=== PATIENT | male | born 1940 | race Caucasian/White ===

== ENCOUNTER 2018-10-06 12:12 | Emergency (ER) | payer MEDICARE, OTHER ==
[~2018-10-06] VITALS: Ht 182.9 cm; Wt 95.3 kg
--- OUTSIDE RECORDS SUMMARY | 2018-10-06 12:26 | XMS REPORT ---
Author RADHA Sarabia Organization [employer] Address Unknown Phone Unavailable Care Team Providers Care Regenerator Operator Name Role Phone RADHA GUIDO CP Unavailable Allergies No Known Allergies Problems Problem Type Condition Code Onset Dates Condition Status Problem Secondary hypertension I15.9 Active Problem Osteoarthritis, unspecified osteoarthritis type, unspecified site M19.90 Active Problem Chronic fatigue R53.82 Active Problem Depression, unspecified depression type F32.9 Active Medications Medication Code System Code Instructions Start Date End Date Status Dosage Naprosyn [facility] [address]-59 500 MG Orally every 12 hrs Jun 06, 2016Aug 1 tablet as needed Results No Known Results Summary Purpose eClinicalWorks Submission
--- OUTSIDE RECORDS SUMMARY | 2018-10-06 12:26 | XMS REPORT ---
Author Author RADHA GUIDO Organization [facility] Address [address] [place] [address] Care Team Providers Care Aoc Operations Intelligence Chief Name Role Phone KRISSY GUIDONETTE Unavailable PROBLEMS Type Condition ICD9-CM Code JNR11-AF Code Onset Dates Condition Status SNOMED Code Problem Lumbar and sacral arthritis M48.9 Active 20113191 Problem Secondary hypertension I15.9 Active 31879628 Problem Pure hypercholesterolemia E78.00 Active 170510524 Problem Environmental allergies Z91.09 Active 338763969 Problem Other chronic pain G89.29 Active 67096125 Problem Osteoarthritis, unspecified osteoarthritis type, unspecified site M19.90 Active 976295969 Problem Depression, unspecified depression type F32.9 Active 58847614 Problem Gastroesophageal reflux disease, esophagitis presence not specified K21.9 Active 862670502 Problem Chronic fatigue R53.82 Active 45210846 ALLERGIES No Known Allergies SOCIAL HISTORY Never Assessed PLAN OF CARE Activity Details Follow Up 2 Weeks Reason: VITAL SIGNS Height 70 in 2017-01-08 Weight 203.5 lbs 2017-01-08 Temperature 98.1 degrees Fahrenheit 2017-01-08 Heart Rate 80 bpm 2017-01-08 Respiratory Rate 18 2017-01-08 BMI 29.20 kg/m2 2017-01-08 Blood pressure systolic 126 mmHg 2017-01-08 Blood pressure diastolic 70 mmHg 2017-01-08 MEDICATIONS Medication Instructions Dosage Frequency Start Date End Date Duration Status Valsartan 160 MG Orally Once a day 1 24h Active Multivital - Active Flaxseed Oil - Active Fexofenadine HCl 180 MG Orally Once a day 1 tablet as needed 24h December, Mar, 30 day(s) Active Celexa 20 mg Orally Once a day 1 tablet 24h 30 Jan, 2016 30 day(s) Active Aspir-81 81 MG Orally Once a day 1 tablet 24h Active Simvastatin 40 MG Orally Once a day 1 tablet in the evening 24h Active Ranitidine 1 tab Active RESULTS No Results PROCEDURES Procedure Date Ordered Result Body Site DEPO MEDROL 40 MG/ML January 08, 2017 DEXAMETHASONE 4MG/ML (PER 1 MG) January 08, 2017 THER/PROPH/DIAG INJ, SC/IM January 08, 2017 IMMUNIZATIONS Vaccine Route Administration Date Status DEXAMETHASONE 4MG/ML (PER 1 MG) IM Intramuscular January 08, 2017 Administered DEPO MEDROL 40 MG/ML IM Intramuscular January 08, 2017 Administered MEDICAL (GENERAL) HISTORY Type Description Date Medical History Mixed hyperlipidemia Medical History Essential (primary) hypertension Surgical History CABGx3 Surgical History appendectomy Hospitalization History surgeries
--- OUTSIDE RECORDS SUMMARY | 2018-10-06 12:26 | XMS REPORT ---
Author Author RICHARD CHARLES [facility] Address [address] [place] [address] Care Team Providers Care Grid Caster Name Role Phone RICHARD CHARLES Unavailable PROBLEMS Type Condition ICD9-CM Code SUI59-NS Code Onset Dates Condition Status SNOMED Code Problem Lumbar and sacral arthritis M48.9 Active 01084803 Problem Secondary hypertension I15.9 Active 73757242 Problem Pure hypercholesterolemia E78.00 Active 610343045 Problem Environmental allergies Z91.09 Active 179711867 Problem Other chronic pain G89.29 Active 97222453 Problem Osteoarthritis, unspecified osteoarthritis type, unspecified site M19.90 Active 273403532 Problem Depression, unspecified depression type F32.9 Active 72239550 Problem Gastroesophageal reflux disease, esophagitis presence not specified K21.9 Active 791956970 Problem Chronic fatigue R53.82 Active 92284294 ALLERGIES No Information ENCOUNTERS Encounter Location Date Diagnosis [facility] [id number] [place] [address] 4336 Jul, [facility] [id number] [place] [address] 20776- 4391 May, [facility] [id number] [place] [address] 02636- 7305 Apr, Environmental allergies Z91.09 [facility] [id number] [place] [address]11- 9782 Jan, Secondary hypertension I15.9 ; Osteoarthritis, unspecified osteoarthritis type, unspecified site M19.90 ; Chronic fatigue R53.82 ; Hypercholesterolemia E78.0 and Environmental allergies Z91.09 [facility] [id number] [place] [address] 00818- 7252 December, Secondary hypertension I15.9 and Environmental allergies Z91.09 [facility] [id number] [address] Sep, [facility] [id number] [place] [address] 47661- 5560 Sep, Low back pain M54.5 ; Other chronic pain G89.29 ; Osteoarthritis, unspecified osteoarthritis type, unspecified site M19.90 ; Gastroesophageal reflux disease, esophagitis presence not specified K21.9 ; Secondary hypertension I15.9 and Hypercholesterolemia E78.0 [facility] [id number] [place] [address] 81048- 3268 Aug, Acute upper respiratory infection, unspecified J06.9 ; Other viral agents as the cause of diseases classified elsewhere B97.89 and Nausea R11.0 [facility] [address], [place] [address] Jun, Osteoarthritis, unspecified osteoarthritis type, unspecified site M19.90 [facility] [id number] [place] [address]28- 2006 May, [facility] [id number] [place] [address] 73632- 9[address] May, Arthralgia, unspecified joint M25.50 ; Urinary frequency R35.0 and Chronic fatigue R53.82 [facility] [id number] [place] [address] 38442- 4169 Apr, [facility] [id number] [place] [address] 74650- 1451 Mar, [facility] [id number] [place] [address] 27101- 0398 Mar, [facility] [id number] [place] [address] 14822- 2605 Jan, Secondary hypertension I15.9 ; Osteoarthritis, unspecified osteoarthritis type, unspecified site M19.90 ; Depression, unspecified depression type F32.9 ; Gastroesophageal reflux disease, esophagitis presence not specified K21.9 and Hypercholesterolemia E78.0 IMMUNIZATIONS No Known Immunizations SOCIAL HISTORY Never Assessed REASON FOR VISIT Refill request PLAN OF CARE VITAL SIGNS MEDICATIONS Medication Instructions Dosage Frequency Start Date End Date Duration Status Celexa 20 mg Orally Once a day 1 tablet 24h Jan, 30 day(s) Active RESULTS No Results PROCEDURES No Known procedures INSTRUCTIONS MEDICATIONS ADMINISTERED No Known Medications MEDICAL (GENERAL) HISTORY Type Description Date Medical History Mixed hyperlipidemia Medical History Essential (primary) hypertension Surgical History CABGx3 Surgical History appendectomy Hospitalization History surgeries
--- OUTSIDE RECORDS SUMMARY | 2018-10-06 12:26 | XMS REPORT ---
Author Author HAY RADHA Organization [facility] Address [address] [place] [address] Care Team Providers Care Associate Vice President Name Role Phone RADHA GUIDO Unavailable PROBLEMS Type Condition ICD9-CM Code KRN11-IS Code Onset Dates Condition Status SNOMED Code Problem Lumbar and sacral arthritis M48.9 Active 67083187 Problem Secondary hypertension I15.9 Active 57270178 Problem Pure hypercholesterolemia E78.00 Active 593854109 Problem Environmental allergies Z91.09 Active 720919883 Problem Other chronic pain G89.29 Active 49436419 Problem Osteoarthritis, unspecified osteoarthritis type, unspecified site M19.90 Active 248570999 Problem Depression, unspecified depression type F32.9 Active 39531883 Problem Gastroesophageal reflux disease, esophagitis presence not specified K21.9 Active 525982167 Problem Chronic fatigue R53.82 Active 46128457 ALLERGIES No Known Allergies SOCIAL HISTORY Never Assessed PLAN OF CARE Activity Details Follow Up 3 Months, prn Reason: VITAL SIGNS Height 70 in 2016-09-24 Weight 208.9 lbs 2016-09-24 Temperature 97.6 degrees Fahrenheit 2016-09-24 Heart Rate 72 bpm 2016-09-24 Respiratory Rate 18 2016-09-24 BMI 29.97 kg/m2 2016-09-24 Blood pressure systolic 128 mmHg 2016-09-24 Blood pressure diastolic 74 mmHg 2016-09-24 MEDICATIONS Medication Instructions Dosage Frequency Start Date End Date Duration Status Aspir-81 81 MG Orally Once a day 1 tablet 24h Active Diclofenac Potassium 50 mg Orally Twice a day 1 tablet 12h Jun, Sep, Active Flaxseed Oil - Active Simvastatin 40 MG Orally Once a day 1 tablet in the evening 24h Active Celexa 20 mg Orally Once a day 1 tablet 24h 30 Jan, 2016 30 day(s) Active Valsartan 160 MG Orally Once a day 1 24h Active Ranitidine 1 tab Active Multivital - Active RESULTS Name Result Date Reference Range Xray : Spine, Lumbar 2-3 views (IN HOUSE) 2016-09-24 PROCEDURES Procedure Date Ordered Result Body Site X-RAY EXAM OF LOWER SPINE Sep 24, 2016 THER/PROPH/DIAG INJ, SC/IM Sep 24, 2016 DEPO MEDROL 40 MG/ML Sep 24, 2016 DEXAMETHASONE 4MG/ML (PER 1 MG) Sep 24, 2016 IMMUNIZATIONS Vaccine Route Administration Date Status DEXAMETHASONE 4MG/ML (PER 1 MG) IM Intramuscular Sep 24, 2016 Administered DEPO MEDROL 40 MG/ML IM Intramuscular Sep 24, 2016 Administered MEDICAL (GENERAL) HISTORY Type Description Date Medical History Mixed hyperlipidemia Medical History Essential (primary) hypertension Surgical History CABGx3 Surgical History appendectomy Hospitalization History surgeries
--- OUTSIDE RECORDS SUMMARY | 2018-10-06 12:26 | XMS REPORT ---
Author Author HAY RADHA Organization [facility] Address [address] [place] [address] Care Team Providers Care Materials Associate Name Role Phone RADHA GUIDO Unavailable PROBLEMS Type Condition ICD9-CM Code QOV18-TS Code Onset Dates Condition Status SNOMED Code Problem Lumbar and sacral arthritis M48.9 Active 41394531 Problem Secondary hypertension I15.9 Active 77425126 Problem Pure hypercholesterolemia E78.00 Active 372027272 Problem Environmental allergies Z91.09 Active 670033348 Problem Other chronic pain G89.29 Active 76199494 Problem Osteoarthritis, unspecified osteoarthritis type, unspecified site M19.90 Active 199720587 Problem Depression, unspecified depression type F32.9 Active 44552697 Problem Gastroesophageal reflux disease, esophagitis presence not specified K21.9 Active 556304553 Problem Chronic fatigue R53.82 Active 08922032 ALLERGIES Substance Reaction Event Type Date Status N.K.D.A. Unknown Non Drug Allergy Aug, Unknown SOCIAL HISTORY No smoking Hx information available PLAN OF CARE Activity Details Follow Up 1 Week, prn Reason: VITAL SIGNS Height 70 in 2016-08-22 Weight 210.8 lbs 2016-08-22 Temperature 98.1 degrees Fahrenheit 2016-08-22 Heart Rate 88 bpm 2016-08-22 Respiratory Rate 16 2016-08-22 BMI 30.24 kg/m2 2016-08-22 Blood pressure systolic 110 mmHg 2016-08-22 Blood pressure diastolic 70 mmHg 2016-08-22 MEDICATIONS Medication Instructions Dosage Frequency Start Date End Date Duration Status Tramadol HCl 50 mg Orally every 6 hrs 1 tablet as needed 6h Jun, Active Diclofenac Potassium 50 mg Orally Twice a day 1 tablet 12h Jun, Sep, 90 days Active Naprosyn 500 MG Orally every 12 hrs 1 tablet as needed 12h May, Aug, 90 days Active Ranitidine 1 tab Active Schyiv-Gpmeiundi-ZHR Complex - Active Valsartan 160 MG Orally Once a day 1 24h Active Celexa 20 mg Orally Once a day 1 tablet 24h 30 Jan, 2016 30 day(s) Active Aspir-81 81 MG Orally Once a day 1 tablet 24h Active Flaxseed Oil - Active Simvastatin 40 MG Orally Once a day 1 tablet in the evening 24h Active Promethazine-DM 6.25-15 MG/5ML Orally every 6 hrs 5 ml as needed 6h Aug Active Multivital - Active RESULTS No Results PROCEDURES Procedure Date Ordered Related Diagnosis Body Site Office Visit, Est Pt., Level 3 Aug 22, 2016 DEXAMETHASONE 4MG/ML (PER 1 MG) Aug 22, 2016 THER/PROPH/DIAG INJ, SC/IM Aug 22, 2016 IMMUNIZATIONS Vaccine Route Administration Date Status DEXAMETHASONE 4MG/ML (PER 1 MG) IM Intramuscular Aug 22, 2016 Administered
--- OUTSIDE RECORDS SUMMARY | 2018-10-06 12:26 | XMS REPORT ---
Author Author RICHARD CHARLES [facility] Address [address] [place] [address] Care Team Providers Care Letterpress Printing Machinist Name Role Phone RICHARD CHARLES Unavailable PROBLEMS Type Condition ICD9-CM Code MEJ21-NG Code Onset Dates Condition Status SNOMED Code Problem Lumbar and sacral arthritis M48.9 Active 41669632 Problem Secondary hypertension I15.9 Active 43036783 Problem Pure hypercholesterolemia E78.00 Active 341253325 Problem Environmental allergies Z91.09 Active 040674149 Problem Other chronic pain G89.29 Active 48831924 Problem Osteoarthritis, unspecified osteoarthritis type, unspecified site M19.90 Active 006316209 Problem Depression, unspecified depression type F32.9 Active 20093693 Problem Gastroesophageal reflux disease, esophagitis presence not specified K21.9 Active 287905247 Problem Chronic fatigue R53.82 Active 45238295 ALLERGIES No Information ENCOUNTERS Encounter Location Date Diagnosis [facility] [id number] [place] [address] 31387- 0679 Jul, [facility] [id number] [place] [address] 63597- 1156 May, [facility] [id number] [place] [address] 32236- 0100 Apr, Environmental allergies Z91.09 [facility] [id number] [place] [address] 38912- 9984 Jan, Secondary hypertension I15.9 ; Osteoarthritis, unspecified osteoarthritis type, unspecified site M19.90 ; Chronic fatigue R53.82 ; Hypercholesterolemia E78.0 and Environmental allergies Z91.09 [facility] [id number] [place] [address] 17375- 7192 December, Secondary hypertension I15.9 and Environmental allergies Z91.09 [facility] [id number] [address] Sep, [facility] [id number] [place] [address] 88329- 6935 Sep, Low back pain M54.5 ; Other chronic pain G89.29 ; Osteoarthritis, unspecified osteoarthritis type, unspecified site M19.90 ; Gastroesophageal reflux disease, esophagitis presence not specified K21.9 ; Secondary hypertension I15.[address] [facility] [id number] [place] [address] 41160- 0363 Aug, Acute upper respiratory infection, unspecified J06.9 ; Other viral agents as the cause of diseases classified elsewhere B97.89 and Nausea R11.0 [facility] [address], [place] [address] Jun, Osteoarthritis, unspecified osteoarthritis type, unspecified site M19.90 [place] [id number] [place] [address] 72962- 5800 May, [facility] [id number] [place] [address] 21507- 1914 May, Arthralgia, unspecified joint M25.50 ; Urinary frequency R35.0 and Chronic fatigue R53.82 [facility] [id number] [place] [address] 80738- 5339 Apr, [place] [id number] [place] [address] 58470- 5421 Mar, [facility] [place] [id number] [place] [address] 72826- 2502 Mar, [facility] [place] [id number] [place] [address] 42728- 3553 Jan, Secondary hypertension I15.9 ; Osteoarthritis, unspecified osteoarthritis type, unspecified site M19.90 ; Depression, unspecified depression type F32.9 ; Gastroesophageal reflux disease, esophagitis presence not specified K21.9 and Hypercholesterolemia E78.0 IMMUNIZATIONS No Known Immunizations SOCIAL HISTORY Never Assessed REASON FOR VISIT Medication refill request PLAN OF CARE VITAL SIGNS MEDICATIONS Unknown Medications RESULTS No Results PROCEDURES No Known procedures INSTRUCTIONS MEDICATIONS ADMINISTERED No Known Medications MEDICAL (GENERAL) HISTORY Type Description Date Medical History Mixed hyperlipidemia Medical History Essential (primary) hypertension Surgical History CABGx3 Surgical History appendectomy Hospitalization History surgeries
--- OUTSIDE RECORDS SUMMARY | 2018-10-06 12:27 | XMS REPORT ---
Author RADHA Sarabia [facility] [employer] Address Unknown Phone Unavailable Care Team Providers Care Intermediate Designer Name Role Phone RADHA GUIDO CP Unavailable Allergies, Adverse Reactions, Alerts Substance Reaction Event Type N.K.D.A. Info Not Available Non Drug Allergy Problems Problem Type Condition Code Onset Dates Condition Status Problem Secondary hypertension I15.9 Active Problem Osteoarthritis, unspecified osteoarthritis type, unspecified site M19.90 Active Problem Chronic fatigue R53.82 Active Assessment Urinary frequency R35.0 Active Assessment Chronic fatigue R53.82 Active Problem Depression, unspecified depression type F32.9 Active Assessment Arthralgia, unspecified joint M25.50 Active Medications Medication Code System Code Instructions Start Date End Date Status Dosage Multivital [facility] [address]3378 - Orally not defined Celexa [facility] [address]-38 20 mg Orally Once a day February 09, 2016 1 tablet Ranitidine [facility] 0 Oral 1 tab Flaxseed Oil [facility] 85806-63136 - not defined Ltsfgl-Bmwghmucm-IZF Complex [facility] 48767-90803 - Orally not defined Meloxicam [facility] 04698059044 15 MG Orally Once a day 1 tablet Simvastatin [facility] [address]-64 40 MG Orally Once a day 1 tablet in the evening Valsartan [facility] [address]-58 160 MG Orally Once a day 1 Aspir-81 [facility] [address]-60 81 MG Orally Once a day 1 tablet Procedures Procedure Coding System Code Date DEXAMETHASONE 20MG/5 ML (PER 1 MG) CPT-4 J1100 Jun 05, 2016 URINALYSIS, AUTO, W/O SCOPE CPT-4 71808 Jun 05, 2016 COMPLETE CBC W/AUTO DIFF WBC CPT-4 36572 Jun 05, 2016 RBC SED RATE, NONAUTOMATED CPT-4 59809 Jun 05, 2016 DEPO MEDROL 40 MG/ML CPT-4 J1030 Jun 05, 2016 VENIPUNCT, ROUTINE* CPT-4 58061 Jun 05, 2016 THER/PROPH/DIAG INJ, SC/IM CPT-4 55205 Jun 05, 2016 COMPREHEN METABOLIC PANEL CPT-4 96545 Jun 05, 2016 ASSAY OF BLOOD/URIC ACID CPT-4 16216 Jun 05, 2016 Office Visit, Est Pt., Level 4 CPT-4 98375 Jun 05, 2016 ASSAY OF PSA, TOTAL CPT-4 54386 Jun 05, 2016 Vital Signs Date/Time: Jun 05, 2016 Cardiac Monitoring Heart Rate 64 bpm Weight 204.6 lbs Height 70 in BMI 29.35 Index Blood Pressure Diastolic 70 mmHg Blood Pressure Systolic 138 mmHg Results Name Result Date Reference Range Unit Abnormality Flag PSA ----Prostate Specific Ag, Serum 2.5 64505432 0.0-4.0 ng/mL CMP ----Globulin, Total 2.1 25040869 1.5-4.5 g/dL ----eGFR If Africn Am 71 52398395 >59 mL/min/1.73 ----eGFR If NonAfricn Am 62 26624732 >59 mL/min/1.73 ----Albumin, Serum 4.6 27632053 3.5-4.8 g/dL ----Sodium, Serum 146 11638274 136-144 mmol/L H ----Protein, Total, Serum 6.7 86019159 6.0-8.5 g/dL ----BUN/Creatinine Ratio 15 06353056 10-22 ----Calcium, Serum 9.3 84964003 8.6-10.2 mg/dL ----AST (SGOT) 25 05238556 0-40 IU/L ----Glucose, Serum 100 18079898 65-99 mg/dL H ----Alkaline Phosphatase, S 57 29832267 39-117 IU/L ----Bilirubin, Total 0.7 85144299 0.0-1.2 mg/dL ----Creatinine, Serum 1.16 43167650 0.76-1.27 mg/dL ----A/G Ratio 2.2 05166696 1.1-2.5 ----BUN 17 01423577 8-27 mg/dL ----Carbon Dioxide, Total 23 55448260 18-29 mmol/L ----ALT (SGPT) 20 49550643 0-44 IU/L ----Potassium, Serum 4.4 46533753 3.5-5.2 mmol/L ----Chloride, Serum 103 45672771 97-106 mmol/L URIC ACID, SERUM ----Uric Acid, Serum 7.1 70220541 3.7-8.6 mg/dL CBC ----MCHC 33.4 42171019 31.5-35.7 g/dL ----MCH 30.4 55978236 26.6-33.0 pg ----Platelets 203 03101129 150-379 x10E3/uL ----RDW 13.4 81684769 12.3-15.4 % ----Immature Granulocytes 0 00256363 % ----Immature Grans (Abs) 0.0 79374726 0.0-0.1 x10E3/uL ----Lymphs 39 30182650 % ----Monocytes 13 02708723 % ----Neutrophils 46 32565008 % ----Neutrophils (Absolute) 4.1 47462916 1.4-7.0 x10E3/uL ----Hematocrit 39.8 38324470 37.5-51.0 % ----Lymphs (Absolute) 3.5 51570076 0.7-3.1 x10E3/uL H ----MCV 91 19644030 79-97 fL ----RBC 4.37 66134208 4.14-5.80 x10E6/uL ----Eos 2 85275861 % ----Basos 0 99429494 % ----Hemoglobin 13.3 70443760 12.6-17.7 g/dL ----Baso (Absolute) 0.0 20066002 0.0-0.2 x10E3/uL ----WBC 9.0 11168413 3.4-10.8 x10E3/uL ----Monocytes(Absolute) 1.2 54762470 0.1-0.9 x10E3/uL H ----Eos (Absolute) 0.2 38825477 0.0-0.4 x10E3/uL ROUTINE VENIPUNCTURE ESR/SED RATE (IN HOUSE) ----Exp Date 10/09/16201605135 0 - 20 ----Lot # [id number] ----SED/ESR RATE 45 mm/hr [id number] UA LONG DIP (IN HOUSE) ----Clarity clear 20160605 ----Exp date [id number] ----GLU negative 20160605 ----Color yellow 20160605 ----KET trace 20160605 ----JENISE 1+ 20160605 ----BLO negative 20160605 ----SG >1.030 20160605 ----pH 5.5 20160605 ----URO 1.0 20160605 ----Protein trace 20160605 ----CESIA negative 20160605 ----NIT negative 20160605 ----Lot # [id number] Summary Purpose eClinicalWorks Submission
--- OUTSIDE RECORDS SUMMARY | 2018-10-06 12:27 | XMS REPORT ---
Author Author RADHA Leblanc Organization [facility] Address [address] [place] [address] Care Team Providers Care Sexual Assault Counsellor Name Role Phone Deana RADHA Unavailable PROBLEMS Type Condition ICD9-CM Code [id number] Code Onset Dates Condition Status SNOMED Code Problem Lumbar and sacral arthritis M48.9 Active 28091501 Problem Secondary hypertension I15.9 Active 99626701 Problem Pure hypercholesterolemia E78.00 Active 462289013 Problem Environmental allergies Z91.09 Active 843890045 Problem Other chronic pain G89.29 Active 19271794 Problem Osteoarthritis, unspecified osteoarthritis type, unspecified site M19.90 Active 762650479 Problem Depression, unspecified depression type F32.9 Active 39863302 Problem Gastroesophageal reflux disease, esophagitis presence not specified K21.9 Active 654984857 Problem Chronic fatigue R53.82 Active 42044433 ALLERGIES No Information ENCOUNTERS Encounter Location Date Diagnosis [facility] [id number] [place] [phone] Jul, [facility] [id number] [place] [address] [phone] May, [facility] [id number] [place] [address] [phone] Apr, Environmental allergies Z91.09 [facility] [id number] [place] [address] [phone] Jan, Secondary hypertension I15.9 ; Osteoarthritis, unspecified osteoarthritis type, unspecified site M19.90 ; Chronic fatigue R53.82 ; Hypercholesterolemia E78.0 [address] Environmental allergies Z91.09 [facility] [id number] [place] [address] [phone]- 2459 December, Secondary hypertension I15.9 [address] Environmental allergies Z91.09 [facility] [id number] [place] [address] [phone] Sep, [place] [id number] [place] [address] [phone]- [phone] Sep, Low back pain M54.5 ; Other chronic pain G89.29 ; Osteoarthritis, unspecified osteoarthritis type, unspecified site M19.90 ; Gastroesophageal reflux disease, esophagitis presence not specified K21.9 ; Secondary hypertension I15.9 and Hypercholesterolemia E78.0 [place] [id number] [place] [address] [phone] Aug, Acute upper respiratory infection, unspecified J06.9 ; Other viral agents as the cause of diseases classified elsewhere B97.89 and Nausea R11.0 [facility] [id number] [place] [address] [phone] -[phone] Jun, Osteoarthritis, unspecified osteoarthritis type, unspecified site M19.90 [place] [id number] [place] [address] [phone]- [phone] May, [place] [id number] [place] [address] [phone]- 1558 May, Arthralgia, unspecified joint M25.50 ; Urinary frequency R35.0 and Chronic fatigue R53.82 [place] [id number] [place] [address] [phone]- [phone] Apr, [place] [id number] [place] [address] 31443- [phone] Mar, [place] [id number] [place] [address] 19483- 9992 Mar, [place] [id number] [place] [address] [phone] Jan, Secondary hypertension I15.9 ; Osteoarthritis, unspecified osteoarthritis type, unspecified site M19.90 ; Depression, unspecified depression type F32.9 ; Gastroesophageal reflux disease, esophagitis presence not specified K21.9 and Hypercholesterolemia E78.0 IMMUNIZATIONS No Known Immunizations SOCIAL HISTORY Never Assessed REASON FOR VISIT Refill request PLAN OF CARE VITAL SIGNS MEDICATIONS Medication Instructions Dosage Frequency Start Date End Date Duration Status Fexofenadine HCl 180 MG Orally Once a day 1 tablet as needed 24h December, Active RESULTS No Results PROCEDURES No Known procedures INSTRUCTIONS MEDICATIONS ADMINISTERED No Known Medications MEDICAL (GENERAL) HISTORY Type Description Date Medical History Mixed hyperlipidemia Medical History Essential (primary) hypertension Surgical History CABGx3 Surgical History appendectomy Hospitalization History surgeries
--- OUTSIDE RECORDS SUMMARY | 2018-10-06 12:27 | XMS REPORT ---
Author Author HAY RADHA Organization [facility] Address [address] [place] [address] Care Team Providers Care Residence Life Coordinator Name Role Phone RADHA GUIDO Unavailable PROBLEMS Type Condition ICD9-CM Code [id number] Code Onset Dates Condition Status SNOMED Code Problem Pure hypercholesterolemia E78.00 Active 390668942 Problem Depression, unspecified depression type F32.9 Active 71399081 Problem Lumbar and sacral arthritis M48.9 Active 45231895 Problem Environmental allergies Z91.09 Active 815963908 Problem Other chronic pain G89.29 Active 09490116 Problem Secondary hypertension I15.9 Active 57654662 Problem Osteoarthritis, unspecified osteoarthritis type, unspecified site M19.90 Active 564398897 Problem Gastroesophageal reflux disease, esophagitis presence not specified K21.9 Active 999364601 Problem Chronic fatigue R53.82 Active 04781246 ALLERGIES Substance Reaction Event Type Date Status N.K.D.A. Unknown Non Drug Allergy Jun, Unknown SOCIAL HISTORY No smoking Hx information available PLAN OF CARE Activity Details Follow Up 6 Weeks Reason:oa VITAL SIGNS Height 70 in 2016-07-10 Weight 209 lbs 2016-07-10 Temperature 97.6 degrees Fahrenheit 2016-07-10 Heart Rate 58 bpm 2016-07-10 Respiratory Rate 18 2016-07-10 BMI 29.99 kg/m2 2016-07-10 Blood pressure systolic 134 mmHg 2016-07-10 Blood pressure diastolic 70 mmHg 2016-07-10 MEDICATIONS Medication Instructions Dosage Frequency Start Date End Date Duration Status Flaxseed Oil - Active Multivital - Active Aspir-81 81 MG Orally Once a day 1 tablet 24h Active Ranitidine 1 tab Active Penlgv-Xnnifiudh-VWD Complex - Active Diclofenac Potassium 50 mg Orally Twice a day 1 tablet 12h 29 Jun, 2016 Sep, 90 days Active Naprosyn 500 MG Orally every 12 hrs 1 tablet as needed 12h May, Aug, 90 days Active Celexa 20 mg Orally Once a day 1 tablet 24h Jan, 30 day(s) Active Tramadol HCl 50 mg Orally every 6 hrs 1 tablet as needed 6h Jun, Active Valsartan 160 MG Orally Once a day 1 24h Active Simvastatin 40 MG Orally Once a day 1 tablet in the evening 24h Active RESULTS No Results PROCEDURES Procedure Date Ordered Related Diagnosis Body Site Office Visit, Est Pt., Level 3 Jul 10, 2016 IMMUNIZATIONS No Known Immunizations
--- OUTSIDE RECORDS SUMMARY | 2018-10-06 12:27 | XMS REPORT ---
Author RADHA Sarabia [facility] eClinicalWorks Address Unknown Phone Unavailable Care Team Providers Care Talent Agent Name Role Phone RADHA GUIDO CP Unavailable Allergies No Known Allergies Problems Problem Type Condition Code Onset Dates Condition Status Problem Osteoarthritis, unspecified osteoarthritis type, unspecified site M19.90 Active Problem Depression, unspecified depression type F32.9 Active Problem Secondary hypertension I15.9 Active Medications Medication Code System Code Instructions Start Date End Date Status Dosage Celexa [facility] [id number] 20 mg Orally Once a day February 09, 2016 1 tablet Results No Known Results Summary Purpose eClinicalWorks Submission
[2018-10-06 12:55] LABS: BASOPHILS % (AUTO) 1 % (0-10); EOSINOPHILS % (AUTO) 1 % (0-10); HEMATOCRIT 40 % (40-54); HEMOGLOBIN 13.3 G/DL (13.3-17.7); LYMPHOCYTES % (AUTO) 38 % (12-44); MEAN CORPUSCULAR HEMOGLOBIN 31 PG (25-34); MEAN CORPUSCULAR HGB CONC 33 G/DL (32-36); MEAN CORPUSCULAR VOLUME 95 FL (80-99); MEAN PLATELET VOLUME 9.3 FL (7.4-10.4); MONOCYTES % (AUTO) 11 % (0-12); NEUTROPHILS % (AUTO) 49 % (42-75); PLATELET COUNT 260 10^3/uL (130-400); RED CELL DISTRIBUTION WIDTH 13.4 % (10.0-14.5); WHITE BLOOD COUNT 10.5 10^3/uL (4.3-11.0)
[2018-10-06 12:56] LABS: BASOPHILS # (AUTO) 0.1 10^3/uL (0.0-0.1); EOSINOPHILS # (AUTO) 0.1 10^3/uL (0.0-0.3); LYMPHOCYTES # (AUTO) 3.9 X 10^3 (1.0-4.0); MONOCYTES # (AUTO) 1.2 X 10^3 (0.0-1.0); NEUTROPHILS # (AUTO) 5.2 X 10^3 (1.8-7.8)
[2018-10-06 13:04] LABS: SODIUM 141 MMOL/L (135-145)
[2018-10-06 13:05] LABS: ALANINE AMINOTRANSFERASE 32 U/L (0-55); ALBUMIN 4.6 GM/DL (3.2-4.5); ALKALINE PHOSPHATASE 43 U/L (40-136); BILIRUBIN,TOTAL 0.6 MG/DL (0.1-1.0); BUN/CREATININE RATIO 22; CALCIUM 9.7 MG/DL (8.5-10.1); CARBON DIOXIDE 25 MMOL/L (21-32); CHLORIDE 100 MMOL/L (98-107); CREATININE SERUM 1.01 MG/DL (0.60-1.30); GFR ESTIMATED > 60; GLUCOSE 101 MG/DL (70-105); TOTAL PROTEIN 7.1 GM/DL (6.4-8.2)
--- NOTE | 2018-10-06 13:26 | Diagnostic Imaging Report ---
PROCEDURE: CT head wo r/o stroke. TECHNIQUE: Multiple contiguous axial images were obtained through the brain without the use of intravenous contrast. INDICATION: Headache for three days and right leg pain for 10 months. COMPARISON: None available. FINDINGS: No hyperdense hemorrhage or space-occupying mass. No hydrocephalus or midline shift. Lind-white matter differentiation is preserved. Specifically, there are no features of large territorial infarct. No acute skull fracture. Paranasal sinuses and mastoid air cells are clear. IMPRESSION: 1. No acute intracranial process by CT. Dictated by: Dictated on workstation # [id number]
--- NOTE | 2018-10-06 13:41 | Diagnostic Imaging Report ---
INDICATION: Headache. FINDINGS: There is cardiomegaly. There has been previous median sternotomy and coronary artery bypass graft. There is some left basilar atelectasis and/or pneumonitis. There is a left pleural effusion. There is no pneumothorax. The mediastinum is unremarkable. IMPRESSION: Left basilar atelectasis and/or pneumonitis and a small left pleural effusion. Cardiomegaly. Dictated by: Dictated on workstation # [id number]
[2018-10-06 14:07] LABS: CLARITY,URINE CLEAR; COLOR,URINE YELLOW
[2018-10-06 14:08] LABS: BILIRUBIN,URINE NEGATIVE (NEGATIVE); GLUCOSE, URINE (UA) NEGATIVE (NEGATIVE); KETONES,URINE NEGATIVE (NEGATIVE); LEUKOCYTE ESTERASE ,URINE NEGATIVE (NEGATIVE); NITRITE,URINE NEGATIVE (NEGATIVE); PROTEIN,URINE NEGATIVE (NEGATIVE); SQUAMOUS EPITHELIAL CELL,UR RARE /HPF; UROBILINOGEN,URINE 0.2 MG/DL (NORMAL)
[2018-10-06] MEDS ORDERED: LEVOFLOXACIN 500 MG TAB (LEVAQUIN) ONE (14:22)
[2018-10-06] MEDS: LEVOFLOXACIN 750 MG TAB (LEVAQUIN) PO ONE ×2 (14:30→14:39)
[2018-10-06] MEDS ORDERED: LEVOFLOXACIN 500 MG TAB (LEVAQUIN) PO ONE (14:45)
[2018-10-06] MEDS ORDERED: LEVO750T9 PO (14:45)
[2018-10-06 14:52] VITALS: BP 135/62
[2018-10-06 14:54] LABS: AMMONIA 56 UMOL/L (11-32)
--- NOTE | 2018-10-06 15:25 | ED Headache ---
General Chief Complaint: Head/Cervical Problems Stated Complaint: DIZZINESS; HEADACHE Nursing Triage Note: Pt was sent over by [facility] physician Dr. Orr for headache and dizziness since saturday. Pt stated today it got worse. The pain is localized on the top of his head. Causing blurred vision, shaking of both arms and SOB on the way here he stated. He stated he has been to bathroom 3-4 times in past hour and not sure if it is from nerves. Nursing Sepsis Screen: No Definite Risk Source: patient, family History of Present Illness Date Seen by Provider: Oct 06, 2018 Time Seen by Provider: 12:30 Initial Comments Patient is a 78 year old male who presents with multiple medical complaints. Reports intermittent posterior and has frontal headaches for the past several days, generalized weakness, fatigue malaise and increased tremors at rest. Denies change in vision, neck stiffness, rash, fever, cough, sore throat, chills nausea vomiting or sweats. No chest pain, palpitations, abdominal pain. Does report mild dyspnea increased urinary frequency and urgency. Denies constipation diarrhea. No other acute symptoms or complaints. Patient was seen by his PCP last week for headache and has a outpatient CT scan later this week. His blood pressure medications chest at this time. Blood pressures well- controlled. Patient referred to the ED for further evaluation and treatment on follow up from his TCP's office today Severity/Quality: moderate Location: frontal, occipital Prior Headaches/Recent Trauma: no recent headache/trauma Modifying Factors: improves with rest Associated Symptoms: No confusion; fatigue; No facial pain; fever/chills; No flushing, No loss of consciousness, No nausea/vomiting, No nasal congestion, No nasal drainage, No numbness in legs/feet, No seizures, No sinus infection, No vision changes; weakness Allergies and Home Medications Allergies Coded Allergies: No Known Drug Allergies (Unverified , 10/06/18) Home Medications Levofloxacin 750 Mg Tablet, 750 MG PO DAILY Prescribed by: KALEB MOSELEY on 10/06/18 [id number] Patient Home Medication List Home Medication List Reviewed: Yes Review of Systems Review of Systems Constitutional: chills, dizziness; No fever; malaise Eyes: No Symptoms Reported Ears, Nose, Mouth, Throat: no symptoms reported Respiratory: No cough; dyspnea on exertion; No hemoptysis, No orthopnea; short of breath; No stridor, No wheezing Gastrointestinal: no symptoms reported, constipation, diarrhea, nausea Genitourinary: see HPI, frequency Musculoskeletal: no symptoms reported, joint pain, muscle pain (chronic) Skin: no symptoms reported Psychiatric/Neurological: No Symptoms Reported, See HPI, Anxiety Past Bxvdzch-Akxaqv-Mscsxv Hx Patient Social History Alcohol Use: Denies Use Recreational Drug Use: No Smoking Status: Former Smoker Type Used: Cigarettes 2nd Hand Smoke Exposure: No Recent Foreign Travel: No Contact w/Someone Who Travel: No Recent Infectious Disease Expo: No Recent Hopitalizations: No Physical Abuse: No Sexual Abuse: No Mistreated: No Fear: No Seasonal Allergies Seasonal Allergies: No Past Medical History Surgeries: Yes (Triple bypass) Appendectomy Respiratory: No Cardiac: Yes (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, coronary atherosclerosis, hypercholesterolemia) High Cholesterol, Hypertension Neurological: No Genitourinary: No Gastrointestinal: No 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 0oz. 95.044978np; BMI Method:Stated General Appearance: WD/WN, no apparent distress HEENT: PERRL/EOMI Neck: non-tender, full range of motion, normal inspection Cardiovascular: regular rate, rhythm Respiratory: chest non-tender, lungs clear, normal breath sounds, no respiratory distress, no accessory muscle use Gastrointestinal: normal bowel sounds Extremities: normal range of motion, non-tender Psychiatric: alert, oriented x 3 Coordination/Gait: abnormal gait Motor/Sensory: no motor deficit, no sensory deficit, no pronator drift Progress/Results/Core Measures Results/Orders Lab Results Laboratory Tests Test 10/06/18 12:31 10/06/18 13:30 10/06/18 13:57 Range/Units White Blood Count 10.5 4.3-11.0 10^3/uL Red Blood Count 4.24 L 4.35-5.85 10^6/uL Hemoglobin 13.3 13.3-17.7 G/DL Hematocrit 40 40-54 % Mean Corpuscular Volume 95 80-99 FL Mean Corpuscular Hemoglobin 31 25-34 PG Mean Corpuscular Hemoglobin Concent 33 32-36 G/DL Red Cell Distribution Width 13.4 10.0-14.5 % Platelet Count 260 130-400 10^3/uL Mean Platelet Volume 9.3 7.4-10.4 FL Neutrophils (%) (Auto) 49 42-75 % Lymphocytes (%) (Auto) 38 12-44 % Monocytes (%) (Auto) 11 0-12 % Eosinophils (%) (Auto) 1 0-10 % Basophils (%) (Auto) 1 0-10 % Neutrophils # (Auto) 5.2 1.8-7.8 X 10^3 Lymphocytes # (Auto) 3.9 1.0-4.0 X 10^3 Monocytes # (Auto) 1.2 H 0.0-1.0 X 10^3 Eosinophils # (Auto) 0.1 0.0-0.3 10^3/uL Basophils # (Auto) 0.1 0.0-0.1 10^3/uL Sodium Level 141 135-145 MMOL/L Potassium Level 4.0 3.6-5.0 MMOL/L Chloride Level 100 98-107 MMOL/L Carbon Dioxide Level 25 21-32 MMOL/L Anion Gap 16 H 5-14 MMOL/L Blood Urea Nitrogen 22 H 7-18 MG/DL Creatinine 1.01 0.60-1.30 MG/DL Estimat Glomerular Filtration Rate > 60 BUN/Creatinine Ratio 22 Glucose Level 101 70-105 MG/DL Calcium Level 9.7 8.5-10.1 MG/DL Corrected Calcium 8.5-10.1 MG/DL Total Bilirubin 0.6 0.1-1.0 MG/DL Aspartate Amino Transf (AST/SGOT) 35 H 5-34 U/L Alanine Aminotransferase (ALT/SGPT) 32 0-55 U/L Alkaline Phosphatase 43 40-136 U/L Ammonia 56 H 11-32 UMOL/L B-Type Natriuretic Peptide 58.0 <100.0 PG/ML Total Protein 7.1 6.4-8.2 GM/DL Albumin 4.6 H 3.2-4.5 GM/DL Thyroid Stimulating Hormone (TSH) 2.13 0.35-4.94 UIU/ML Troponin T 11 <=15 NG/L Urine Color YELLOW Urine Clarity CLEAR Urine pH 6.0 5-9 Urine Specific [place] <1.005 1.016-1.022 Urine Protein NEGATIVE NEGATIVE Urine Glucose (UA) NEGATIVE NEGATIVE Urine Ketones NEGATIVE NEGATIVE Urine Nitrite NEGATIVE NEGATIVE Urine Bilirubin NEGATIVE NEGATIVE Urine Urobilinogen 0.2 NORMAL MG/DL Urine Leukocyte Esterase NEGATIVE NEGATIVE Urine RBC (Auto) NEGATIVE NEGATIVE Urine RBC NONE /HPF Urine WBC NONE /HPF Urine Squamous Epithelial Cells RARE /HPF Urine Crystals NONE /LPF Urine Bacteria NONE /HPF Urine Casts NONE /LPF Urine Mucus NEGATIVE /LPF Urine Culture Indicated NO My Orders Orders - KALEB MOSELEY DO Ct Head Wo-R/O Stroke (10/06/18 12:16) Cbc With Automated Diff (10/06/18 12:16) Comprehensive Metabolic Panel (10/06/18 12:16) Urinalysis (10/06/18 12:16) Ekg Tracing (10/06/18 12:16) Ammonia (10/06/18 12:16) Chest 1 View Ap/Pa Only (10/06/18 12:16) Thyroid Stimulating Hormone (10/06/18 12:26) BNP (10/06/18 14:17) Levofloxacin Tablet (Levaquin Tablet) (10/06/18 14:30) Levofloxacin Tablet (Levaquin Tablet) (10/06/18 14:22) Levofloxacin Tablet (Levaquin Tablet) (10/06/18 14:45) Medications Given in ED Current Medications Medications Dose Ordered Sig/Ramona Route Start Time Stop Time Status Last Admin Dose Admin Levofloxacin 750 mg ONCE ONCE PO 10/06/18 14:45 10/06/18 14:46 DC 10/06/18 14:39 750 MG Vital Signs/I&O 10/06/18 10/06/18 12:31 14:52 Temp 98.0 97.7 Pulse 77 71 Resp 18 18 B/P (MAP) 172/76 (108) 135/62 (86) Pulse Ox 97 99 O2 Delivery Room Air Room Air Blood Pressure Mean: 86 Progress Progress Note : Time: 14:00 Progress Note Generalized weakness, fatigue, malaise, left lower lobe infiltrate noted on chest x-ray. Antibiotics given. Patient's pulse requests discharge home. Case reviewed with PCP. Recommend supportive care, watchful waiting and Levaquin. Patient's PCP to see in the office in one week. Return precautions reviewed Initial ECG Impression Date: Oct 06, 2018 Initial ECG Impression Time: 14:00 Initial ECG Rhythm: Normal Sinus Initial ECG Impression: Normal Departure Impression Primary Impression: Malaise and fatigue Additional Impression: Pneumonia Disposition: 01 HOME, SELF-CARE Condition: Improved Departure-Patient Inst. Patient Instructions: Pneumonia, Adult (DC), Headache, Adult (DC) Add. Discharge Instructions: Please go home and rest, increase fluids and take oral antibiotics as directed. Follow-up with your doctor in office in 1 week for reevaluation. In the meantime he develop new or worsening symptoms, return to the ED. All discharge instructions reviewed with patient and/or family. Voiced understanding. Scripts Levofloxacin (Levaquin) 750 Mg Tablet 750 MG PO DAILY, #6 TAB Prov: KLAEB MOSELEY DO 10/06/18 KALEB MOSELEY DO Oct 06, 2018 15:25
== END 2018-10-06 14:52 | disposition home or self-care (01) ==
LOC: EDUNIT# 12:12 → ER FS 12:15
DX: J18.9 Pneumonia, unspecified organism (principal); R53.81 Other malaise; R53.83 Other fatigue; E78.00 Pure hypercholesterolemia, unspecified; I25.10 Atherosclerotic heart disease of native coronary artery without angina pectoris; I10 Essential (primary) hypertension; F32.9 Major depressive disorder, single episode, unspecified; Z87.891 Personal history of nicotine dependence; Z90.49 Acquired absence of other specified parts of digestive tract; Z98.890 Other specified postprocedural states
CPT/HCPCS: 36415; 70450; 71045; 80053; 81000; 82140; 83880; 84443; 84484; 85025; 93005

== ENCOUNTER 2019-12-14 13:03 | Emergency (ER) | payer MEDICARE ==
[~2019-12-14] VITALS: Ht 182.9 cm; Wt 86.4 kg
[~2019-12-14 13:03] MED LIST: LEVO750T9 PO
[2019-12-14] MEDS ORDERED: ASPIRIN 81 MG CHEW (CHILDREN'S ASA) PO ONE (13:15)
[2019-12-14] MEDS ORDERED: NITROGLYCERIN 0.4 MG SL TABS BTL 25'S SL ONE (13:30)
--- NOTE | 2019-12-14 13:31 | ED Chest Pain ---
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 This started roughly an hour and a half ago He's had no nausea or vomiting no shortness of breath no recent fever or cough he did feel dizzy briefly did not describe palpitations no syncope or fall Allergies and Home Medications Allergies Coded Allergies: No Known Drug Allergies (Unverified , 10/06/18) Home Medications Levofloxacin 750 Mg Tablet, 750 MG PO DAILY Prescribed by: KALEB MOSELEY on 10/06/18 4467 Patient Home Medication List Home Medication List Reviewed: Yes Review of Systems Review of Systems Constitutional: no symptoms reported Respiratory: No Symptoms Reported Cardiovascular: Chest Pain, Lightheadedness; Denies Palpitations, Denies Syncope Gastrointestinal: No Symptoms Reported; Denies Nausea, Denies Vomiting Genitourinary: No Symptoms Reported Musculoskeletal: no symptoms reported Skin: no symptoms reported Past Serraft-Hsnrtv-Klewmz Hx Patient Social History Alcohol Use: Denies Use Recreational Drug Use: No Type Used: Cigarettes 2nd Hand Smoke Exposure: No Recent Foreign Travel: No Contact w/Someone Who Travel: No Recent Hopitalizations: No Physical Abuse: No Sexual Abuse: No Mistreated: No Fear: No Seasonal Allergies Seasonal Allergies: No Past Medical History Surgeries: Yes (Triple bypass) Appendectomy Respiratory: No Cardiac: Yes (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, coronary atherosclerosis, hypercholesterolemia) High Cholesterol, Hypertension Neurological: No Genitourinary: No Gastrointestinal: No 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 0oz. 95.611453dq; BMI Method:Stated General Appearance: No Apparent Distress HEENT: Pharynx Normal Neck: Supple Respiratory: Lungs Clear Cardiovascular: Regular Rate, Rhythm Gastrointestinal: Normal Bowel Sounds, Non Tender, Soft Extremity: Normal Inspection, No Calf Tenderness Neurologic/Psychiatric: Alert, Oriented x3, No Motor/Sensory Deficits, logistics operations manager II- XII Norm as Tested Progress/Results/Core Measures Results/Orders Lab Results Laboratory Tests Test 12/14/19 13:12 12/14/19 15:12 Range/Units White Blood Count 10.2 4.3-11.0 10^3/uL Red Blood Count 4.20 L 4.35-5.85 10^6/uL Hemoglobin 13.3 13.3-17.7 G/DL Hematocrit 40 40-54 % Mean Corpuscular Volume 94 80-99 FL Mean Corpuscular Hemoglobin 32 25-34 PG Mean Corpuscular Hemoglobin Concent 34 32-36 G/DL Red Cell Distribution Width 13.2 10.0-14.5 % Platelet Count 215 130-400 10^3/uL Mean Platelet Volume 9.6 7.4-10.4 FL Neutrophils (%) (Auto) 52 42-75 % Lymphocytes (%) (Auto) 38 12-44 % Monocytes (%) (Auto) 8 0-12 % Eosinophils (%) (Auto) 1 0-10 % Basophils (%) (Auto) 1 0-10 % Neutrophils # (Auto) 5.3 1.8-7.8 X 10^3 Lymphocytes # (Auto) 3.9 1.0-4.0 X 10^3 Monocytes # (Auto) 0.8 0.0-1.0 X 10^3 Eosinophils # (Auto) 0.1 0.0-0.3 10^3/uL Basophils # (Auto) 0.1 0.0-0.1 10^3/uL Prothrombin Time 14.3 12.2-14.7 SEC INR Comment 1.1 0.8-1.4 Sodium Level 142 135-145 MMOL/L Potassium Level 3.8 3.6-5.0 MMOL/L Chloride Level 103 98-107 MMOL/L Carbon Dioxide Level 26 21-32 MMOL/L Anion Gap 13 5-14 MMOL/L Blood Urea Nitrogen 21 H 7-18 MG/DL Creatinine 1.38 H 0.60-1.30 MG/DL Estimat Glomerular Filtration Rate 50 BUN/Creatinine Ratio 15 Glucose Level 134 H 70-105 MG/DL Calcium Level 9.7 8.5-10.1 MG/DL Corrected Calcium 8.5-10.1 MG/DL Total Bilirubin 0.7 0.1-1.0 MG/DL Aspartate Amino Transf (AST/SGOT) 22 5-34 U/L Alanine Aminotransferase (ALT/SGPT) 16 0-55 U/L Alkaline Phosphatase 50 40-136 U/L Troponin I < 0.30 < 0.30 <0.30 NG/ML Total Protein 7.4 6.4-8.2 GM/DL Albumin 4.7 H 3.2-4.5 GM/DL My Orders Orders - NATALIE VICTOR MD Ekg Tracing (12/14/19 13:08) Iv/Invasive Line Insertion .IV start (12/14/19 13:08) Troponin I Fs (12/14/19 13:08) Cbc With Automated Diff (12/14/19 13:08) Comprehensive Metabolic Panel (12/14/19 13:08) Protime With Inr (12/14/19 13:08) Manager Of Employee Relations (12/14/19 13:08) Chest 1 View Ap/Pa Only (12/14/19 13:08) Aspirin Chewable Tablet (Baby Aspirin Ch (12/14/19 13:15) Oxygen-Administer 07,19 (12/14/19 13:20) Nitroglycerin 0.4 Mg Btl 25's (Nitrostat (12/14/19 13:30) Troponin I Fs (12/14/19 15:01) Medications Given in ED Current Medications Medications Dose Ordered Sig/Ramona Route Start Time Stop Time Status Last Admin Dose Admin Aspirin 324 mg ONCE ONCE PO 12/14/19 13:15 12/14/19 13:16 DC 12/14/19 13:29 324 MG Nitroglycerin 0.4 mg ONCE ONCE SL 12/14/19 13:30 12/14/19 13:31 DC 12/14/19 13:29 0.4 MG Vital Signs/I&O 12/14/19 12/14/19 13:08 13:43 Temp 36.2 Pulse 78 Resp 16 B/P (MAP) 151/58 (89) Pulse Ox 99 96 O2 Delivery Room Air Nasal Cannula O2 Flow Rate 2.00 Progress Progress Note : Progress Note EKG shows a sinus rhythm [address] changes there is a bit more of a flipped T-wave in the anterior chest leads than prior tracing CXR - no acute findings Hemoglobin 13.3 white count 10,200 INR 1.1 CMP is essentially unremarkable creatinine 1.38 troponin - neg and 2 hour repeat also neg The patient's pain was dissipating at the time he was seen it resolved completely and stayed gone throughout his ER stay EKG didn't show anything concerning or definitively diagnostic of coronary ischemia, and he never appeared to be in any distress An observation admission was offered as an option We had him walking up and down the halls and he never had any further symptoms here he prefers to go home at this time Patient says his sees Dr. Ramesh he plans to call their office in the morning to see about outpatient follow-up he lives nearby and agrees he could return to the ER at any point if his symptoms return or he is worsening Departure Impression Primary Impression: Chest pain Qualified Codes: R07.9 - Chest pain, unspecified Disposition: 01 HOME, SELF-CARE Condition: Improved Departure-Patient Inst. Decision time for Depature: 15:59 Referrals: MINNIE LOPEZ MD (PCP/Family) Primary Care Physician Patient Instructions: Chest Pain (DC) Add. Discharge Instructions: At this point the cause of your pain is uncertain, thankfully it resolved blood tests on your heart were negative for any damage twice, the EKG and the rest of the tests looked okay If you have further episodes or feel you are getting worse or have more severe pain don't hesitate to return to the ER Otherwise calling Dr. Ramesh's office in the a.m. to arrange for outpatient follow-up sounds like a good plan be sure to take your daily aspirin NATALIE VICTOR MD December 14, 2019 13:31
--- NOTE | 2019-12-14 13:34 | Diagnostic Imaging Report ---
INDICATION: Chest tightness FINDINGS: The heart size and configuration normal. Sternal wires midline. No failure, effusion or pneumothorax. Old scattered benign calcified granulomata stable from the comparison of 10/06/2018. IMPRESSION: Stable chronic findings. Dictated by: Dictated on workstation # [id number]
[2019-12-14 13:39] LABS: HEMATOCRIT 40 % (40-54); HEMOGLOBIN 13.3 G/DL (13.3-17.7); MEAN CORPUSCULAR HEMOGLOBIN 32 PG (25-34); MEAN CORPUSCULAR HGB CONC 34 G/DL (32-36); MEAN CORPUSCULAR VOLUME 94 FL (80-99); WHITE BLOOD COUNT 10.2 10^3/uL (4.3-11.0)
[2019-12-14 13:40] LABS: BASOPHILS # (AUTO) 0.1 10^3/uL (0.0-0.1); BASOPHILS % (AUTO) 1 % (0-10); EOSINOPHILS # (AUTO) 0.1 10^3/uL (0.0-0.3); EOSINOPHILS % (AUTO) 1 % (0-10); LYMPHOCYTES # (AUTO) 3.9 X 10^3 (1.0-4.0); LYMPHOCYTES % (AUTO) 38 % (12-44); MEAN PLATELET VOLUME 9.6 FL (7.4-10.4); MONOCYTES # (AUTO) 0.8 X 10^3 (0.0-1.0); MONOCYTES % (AUTO) 8 % (0-12); NEUTROPHILS # (AUTO) 5.3 X 10^3 (1.8-7.8); NEUTROPHILS % (AUTO) 52 % (42-75); PLATELET COUNT 215 10^3/uL (130-400); RED CELL DISTRIBUTION WIDTH 13.2 % (10.0-14.5)
[2019-12-14 13:42] LABS: INR 1.1 (0.8-1.4); PROTHROMBIN TIME PATIENT 14.3 SEC (12.2-14.7)
[2019-12-14 14:04] LABS: POTASSIUM 3.8 MMOL/L (3.6-5.0); SODIUM 142 MMOL/L (135-145)
[2019-12-14 14:05] LABS: ALANINE AMINOTRANSFERASE 16 U/L (0-55); ALKALINE PHOSPHATASE 50 U/L (40-136); BILIRUBIN,TOTAL 0.7 MG/DL (0.1-1.0); BUN/CREATININE RATIO 15; CALCIUM 9.7 MG/DL (8.5-10.1); CARBON DIOXIDE 26 MMOL/L (21-32); CHLORIDE 103 MMOL/L (98-107); CREATININE SERUM 1.38 MG/DL (0.60-1.30); GFR ESTIMATED 50; GLUCOSE 134 MG/DL (70-105)
[2019-12-14 14:06] LABS: ALBUMIN 4.7 GM/DL (3.2-4.5); TOTAL PROTEIN 7.4 GM/DL (6.4-8.2)
--- OUTSIDE RECORDS SUMMARY | 2019-12-14 14:53 | XMS REPORT ---
Author Author Bora LOPEZ Organization [facility] Address [address] [place] [address] Care Team Providers Care Housekeeping Assistant Name Role Phone MINNIE LOPEZ Unavailable PROBLEMS Type Condition ICD9-CM Code [id number] Code Onset Dates Condition S tatus SNOMED Code Problem Depression, unspecified depression type F32.9 Active 52943162 Problem Osteoarthritis, unspecified osteoarthritis type, unspecified site M19.90 Active 878355047 Problem Chronic fatigue R53.82 Active 5270 2003 Problem Lumbar and sacral arthritis M48.9 Ac tive 45943246 Problem Situational depression F43.21 Active 37173773 Problem Secondary hypertension I15.9 Active 82252082 Problem Mixed hyperlipidemia E78.2 Active 103058827 Problem Pure hypercholesterolemia E78.00 Acti ve 269508116 Problem Other chronic pain G89.29 Active 8 1304233 Problem Gastroesophageal reflux disease, esophagitis pre sence not specified K21.9 Active 147126124 Problem Environmental allergies Z91.09 Active 244817283 Problem Essential hypertension I10 Active 74128342 ALLERGIES Substance Reaction Event Type Date Status Lotensin cough Drug Allergy Sep, Active ENCOUNTERS Encounter Location Date Diagnosis [address] [address] Sep, Essential hypertension I10 ; Pure hyperc holesterolemia E78.00 and Situational depression F43.[address] [address] Sep, [address] [address] Sep, Essential hypertension I10 [facility] [address] [facility] [id number] [address] [place] [phone] Jul, [facility] [address] [place] [id number] [address] [place] [phone] May, [facility] [address] [place] [phone] Apr, Environmental allergies Z91. 09 [facility] [address] [place] [id number] [address] [place] [phone] Jan, Secondary hypertension I15.9 ; Osteoarthritis, unspecified osteoarthritis type, unspecified site M19.90 ; Chronic fatigue R53.82 ; Hypercholesterolemia E78.0 and Environmental allergies Z91.09 [facility] [address] [place] [id number] [address] [place] [phone] December, Secondary hypertension I15.9 and Environmental allergies Z91.09 [place] [address] [address] Sep, [place] [address] [address] Sep, Low back pain M54.5 ; Other chronic pain G89.29 ; Osteoarthritis, unspecified osteoarthritis type, unspecified site M19.90 ; Gastroesophageal reflux disease, esophagitis presence not specified K21.9 ; Secondary hypertension I15.9 and Hypercholesterolemia E78.0 [place] [address] [place] [id number] [place] [phone] Aug, Acute upper respiratory infe ction, unspecified J06.9 ; Other viral agents as the cause of diseases classified elsewhere B97.89 and Nausea R11.0 [facility] [address] [place] [id number] [address] [place] [phone] Jun, Osteoarthritis, unspecified osteoarthritis type, unspecified site M19.90 [facility] [address] [place] [id number] [address] [place] [phone] May, [facility] [address] [place] [id number] [place] [phone] May, Arthralgia, unspecified join t M25.50 ; Urinary frequency R35.0 and Chronic fatigue R53.82 [place] [address] [facility] [id number] [address] [place] [phone] Apr, [facility] [address] [facility] [id number] [address] [place] [phone] Mar, [facility] [address] [facility] [id number] [address] [place] [phone] Mar, [facility] [address] [facility] [id number] [address] [place] [phone] Jan, Secondary hypertension I15.9 ; Osteoarthritis, unspecified osteoarthritis type, unspecified site M19.90 ; Depression, unspecified depression type F32.9 ; Gastroesophageal reflux disease, esophagitis presence not specified K21.9 and Hypercholesterolemia E78.0 IMMUNIZATIONS No Known Immunizations SOCIAL HISTORY Never Assessed REASON FOR VISIT F/U-Blood Pressure PLAN OF CARE Activity Details Follow Up prn Reason:fu with labs prio r VITAL SIGNS Height 70 in 2018-09-23 Weight 162lb lbs 2018-09-23 BMI 23.24 kg/m2 2018-09-23 Blood pressure systolic 150 mmHg 2018-09-23 Blood pressure diastolic 82 mmHg 2018-09-23 MEDICATIONS Medication Instructions Dosage Frequency Start Date End Date Duration S tatus Rdpxof-Eppuwzubx-IBU Complex - Active Simvastatin 40 MG Orally at bedtime 1 tablet in the evening Active Flaxseed Oil 1000 MG Orally Once a day 1 capsule 24h Active Zantac 150 Maximum Strength 150 MG Orally 2 times a day 1 tablet at bedtime 12h 30 day(s) Active Norvasc 5 MG Orally Once a day 1 tablet 24h Sep, Active Celexa 20 mg Orally Once a day 1 tablet 24h 30 Jan, 2016 30 day(s) Active Hydrocodone-Acetaminophen 5-325 MG Orally every 6 hrs 1 tablet as need ed 6h Active Multivital - by oral route Once a day 1 tablet 24h Active Aspir-81 81 MG Orally Once a day 1 tablet 24h Active RESULTS No Results PROCEDURES No Known procedures INSTRUCTIONS MEDICATIONS ADMINISTERED No Known Medications MEDICAL (GENERAL) HISTORY Type Description Date Medical History Mixed hyperlipidemia Medical History Essential (primary) hypertension Medical History depression Medical History ulner tunnel left wrist Medical History coronary atherosclerosis Medical History Arthritis Surgical History CABGx3 Surgical History appendectomy Hospitalization History surgeries
--- OUTSIDE RECORDS SUMMARY | 2019-12-14 14:53 | XMS REPORT ---
Author Author Bora LOPEZ Organization [facility] Address [address] [place] [address] Care Team Providers Care Lamp Assembler Name Role Phone MINNIE LOPEZ Unavailable PROBLEMS Type Condition ICD9-CM Code UHC81-EC Code Onset Dates Condition S tatus SNOMED Code Problem Depression, unspecified depression type F32.9 Active 07114875 Problem Osteoarthritis, unspecified osteoarthritis type, unspecified site M19.90 Active 763488076 Problem Chronic fatigue R53.82 Active 5270 2002 Problem Lumbar and sacral arthritis M48.9 Ac tive 75764963 Problem Situational depression F43.21 Active 31769449 Problem Secondary hypertension I15.9 Active 47884760 Problem Mixed hyperlipidemia E78.2 Active 124405207 Problem Pure hypercholesterolemia E78.00 Acti ve 517605598 Problem Other chronic pain G89.29 Active 8 8285004 Problem Gastroesophageal reflux disease, esophagitis pre sence not specified K21.9 Active 906286431 Problem Environmental allergies Z91.09 Active 807625904 Problem Essential hypertension I10 Active 86390503 ALLERGIES Substance Reaction Event Type Date Status Lotensin cough Drug Allergy Oct, Active ENCOUNTERS Encounter Location Date Diagnosis [address] [address] Oct, Essential hypertension I10 [address] [address] Oct, Other chronic pain G89.29 ; Mixed hyperl ipidemia E78.2 and Lumbar and sacral arthritis M48.[address] [address] Sep, Essential hypertension I10 [address] [address] Sep, Essential (primary) hypertension I10 [address] [address] Sep, [address] [address] Sep, Essential hypertension I10 ; Pure hyperc holesterolemia E78.00 and Situational depression F43.[address] [address] Sep, [address] [address] Sep, Essential hypertension I10 [facility] [address] [place] [id number] [address] [place] [phone] Jul, [facility] [address] [address] May, [facility] [address] [place] [id number] [address] [place] [phone] Apr, Environmental allergies Z91. 09 [place] [address] [place] [id number] [place] [phone] Jan, Secondary hypertension I15.9 ; Osteoarthritis, unspecified osteoarthritis type, unspecified site M19.90 ; Chronic fatigue R53.82 ; Hypercholesterolemia E78.0 and Environmental allergies Z91.09 [facility] [address] [place] [id number] [address] [place] [phone] December, Secondary hypertension I15.9 and Environmental allergies Z91.09 [place] [address] [place] [phone] Sep, [facility] [address] [place] [id number] [address] [place] [phone] Sep, Low back pain M54.5 ; Other chronic pain G89.29 ; Osteoarthritis, unspecified osteoarthritis type, unspecified site M19.90 ; Gastroesophageal reflux disease, esophagitis presence not specified K21.9 ; Secondary hypertension I15.9 and Hypercholesterolemia E78.0 [facility] [address] [place] [id number] [place] [phone] Aug, Acute upper respiratory infe ction, unspecified J06.9 ; Other viral agents as the cause of diseases classified elsewhere B97.89 and Nausea R11.[address] [facility] [address] [address] Jun, Osteoarthritis, unspecified osteoarthritis type, unspecified site M19.90 [facility] [address] [address] May, [place] [address] [address] May, Arthralgia, unspecified join t M25.50 ; Urinary frequency R35.0 and Chronic fatigue R53.82 [place] [address] [address] Apr, [facility] [address] [address] Mar, [facility] [address] [address] Mar, [place] [address] [address] Jan, Secondary hypertension I15.9 ; Osteoarthritis, unspecified osteoarthritis type, unspecified site M19.90 ; Depression, unspecified depression type F32.9 ; Gastroesophageal reflux disease, esophagitis presence not specified K21.9 and Hypercholesterolemia E78.0 IMMUNIZATIONS No Known Immunizations SOCIAL HISTORY Never Assessed REASON FOR VISIT Leg pain, follow up. Sara RN PLAN OF CARE Activity Details Follow Up prn Reason: VITAL SIGNS Height 70 in 2018-10-13 Weight 204 lbs 2018-10-13 Temperature 97.8 degrees Fahrenheit 2018-10-13 Heart Rate 87 bpm 2018-10-13 Respiratory Rate 20 2018-10-13 Oximetry 98 % 2018-10-13 BMI 29.27 kg/m2 2018-10-13 Blood pressure systolic 126 mmHg 2018-10-13 Blood pressure diastolic 72 mmHg 2018-10-13 MEDICATIONS Medication Instructions Dosage Frequency Start Date End Date Duration S tatus Multivital - by oral route Once a day 1 tablet 24h Active Aspir-81 81 MG Orally Once a day 1 tablet 24h Active Silmpp-Azjbplwbr-TZT Complex - Active Celexa 20 mg Orally Once a day 1 tablet 24h 30 Jan, 2016 30 day(s) Active Norvasc 5 MG Orally Once a day 1 tablet 24h 06 Sep, 2018 Active Olmesartan Medoxomil 40 MG Orally Once a day 1 tablet 24h 2018 30 day(s) Active Hydrocodone-Acetaminophen 5-325 MG Orally every 6 hrs 1 tablet as need ed 6h Active Meloxicam 15 MG 30 Active Zantac 150 Maximum Strength 150 MG Orally 2 times a day 1 tablet at bedtime 12h 30 day(s) Active Flaxseed Oil 1000 MG Orally Once a day 1 capsule 24h Active Simvastatin 40 MG Orally at bedtime 1 tablet in the evening Active RESULTS No Results PROCEDURES No Known procedures INSTRUCTIONS MEDICATIONS ADMINISTERED No Known Medications MEDICAL (GENERAL) HISTORY Type Description Date Medical History Mixed hyperlipidemia Medical History Essential (primary) hypertension Medical History depression Medical History ulner tunnel left wrist Medical History coronary atherosclerosis Medical History Arthritis Surgical History CABGx3 Surgical History appendectomy Hospitalization History surgeries
--- OUTSIDE RECORDS SUMMARY | 2019-12-14 14:54 | XMS REPORT | Continuity of Care Document ---
Demographics Preferred Language Unknown Marital Status Unknown Orthodoxy Affiliation Unknown Race Unknown Ethnic Group Unknown Author Organization Unknown Address Unknown Phone Unavailable Allergies Active Description Code Type Severity Reaction Onset Reported/Identified Relationship to Patient Clinical Status Yes No Known Drug Allergies [id number] Drug Allergy Unknown N/A 10/06/2018 Medications There is no data. 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, SINGLE EPISOD 10/06/2018 LORELEI DO, KALEB Ot I10 ESSENTIAL (PRIMARY) HYPERTENSION 10/06/2018 MOSELEY DO, KALEB Ot I25.10 ATHSCL HEART DISEASE OF [place] CORONARY 10/06/2018 MOSELEY DO, KALEB Ot J18.9 PNEUMONIA, UNSPECIFIED ORGANISM 10/06/2018 MOSELEY DO, KALEB Ot R51 HEADACHE 10/06/2018 MOSELEY DO, KALEB Ot R53.81 OTHER MALAISE 10/06/2018 MOSELEY DO, KALEB Ot R53.83 OTHER FATIGUE 10/06/2018 MOSELEY DO, KALEB Ot Z87.891 PERSONAL HISTORY OF NICOTINE DEPENDENCE 10/06/2018 LORELEI DO, KALEB Ot Z90.49 ACQUIRED ABSENCE OF OTHER SPECIFIED PART 10/06/2018 LORELEI DO, KALEB Ot Z98.890 OTHER SPECIFIED POSTPROCEDURAL STATES 10/08/2018 LORELEI DO, KALEB Ot E78.00 PURE HYPERCHOLESTEROLEMIA, UNSPECIFIED 10/08/2018 LORELEI DO, KALEB Ot 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, SINGLE EPISOD 10/08/2018 LORELEI DO, KALEB Ot I10 ESSENTIAL (PRIMARY) HYPERTENSION 10/08/2018 MOSELEY DO, KALEB Ot I25.10 ATHSCL HEART DISEASE OF [place] CORONARY 10/08/2018 LORELEI DO, KALEB Ot J18.9 PNEUMONIA, UNSPECIFIED ORGANISM 10/08/2018 MOSELEY DO, KALEB Ot R51 HEADACHE 10/08/2018 MOSELEY DO, KALEB Ot R53.81 OTHER MALAISE 10/08/2018 MOSELEY DO, KALEB Ot R53.83 OTHER FATIGUE 10/08/2018 MOSELEY DO, KALEB Ot Z87.891 PERSONAL HISTORY OF NICOTINE DEPENDENCE 10/08/2018 MOSELEY DO, KALEB Ot Z90.49 ACQUIRED ABSENCE OF OTHER SPECIFIED PART 10/08/2018 [place] DO, KALEB Ot Z98.890 OTHER SPECIFIED POSTPROCEDURAL STATES 11/01/2018 MOSELEY DO, KALEB Ot E78.00 PURE HYPERCHOLESTEROLEMIA, UNSPECIFIED 11/01/2018 [place] DO, KALEB Ot 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, SINGLE EPISOD 11/01/2018 MOSELEY DO, KALEB Ot I10 ESSENTIAL (PRIMARY) HYPERTENSION 11/01/2018 [place] DO, KALEB Ot I25.10 ATHSCL HEART DISEASE OF [place] CORONARY 11/01/2018 [place] DO, KALEB Ot J18.9 PNEUMONIA, UNSPECIFIED ORGANISM 11/01/2018 [place] DO, KALEB Ot R51 HEADACHE 11/01/2018 [place] DO, KALEB Ot R53.81 OTHER MALAISE 11/01/2018 [place] DO, KALEB Ot R53.83 OTHER FATIGUE 11/01/2018 [place] DO, KALEB Ot Z87.891 PERSONAL HISTORY OF NICOTINE DEPENDENCE 11/01/2018 [facility], KALEB Ot Z90.49 ACQUIRED ABSENCE OF OTHER SPECIFIED PART 11/01/2018 [place] DO, KALEB Ot Z98.890 OTHER SPECIFIED POSTPROCEDURAL STATES Procedures There is no data. Results Test Result Range CBC With Differential/Platelet - 6 00:00 WBC 9.0 x10E3/uL 3.4-10.8 RBC 4.37 x10E6/uL 4.14-5.80 Hemoglobin 13.3 g/dL 12.6-17.7 Hematocrit 39.8 % 37.5-51.0 MCV 91 fL 79-97 MCH 30.4 pg 26.6-33.0 MCHC 33.4 g/dL 31.5-35.7 RDW 13.4 % 12.3-15.4 Platelets 203 x10E3/uL 150-379 Neutrophils 46 % Lymphs 39 % Monocytes 13 % Eos 2 % Basos 0 % Neutrophils (Absolute) 4.1 x10E3/uL 1.4- 7.0 Lymphs (Absolute) 3.5 x10E3/uL 0.7-3.1 Monocytes(Absolute) 1.2 x10E3/uL 0.1-0.9 Eos (Absolute) 0.2 x10E3/uL 0.0-0.4 Baso (Absolute) 0.0 x10E3/uL 0.0-0.2 Immature Granulocytes 0 % Immature Grans (Abs) 0.0 x10E3/uL 0.0-0. 1 Comp. Metabolic Panel (14) - 06/05/16 00 :00 Glucose, Serum 100 mg/dL 65-99 BUN 17 mg/dL 8-27 Creatinine, Serum 1.16 mg/dL 0.76-1.27 eGFR If NonAfricn Am 62 mL/min/1.73 >59 eGFR If Africn Am 71 mL/min/1.73 >59 BUN/Creatinine Ratio 15 10-22 Sodium, Serum 146 mmol/L 136-144 Potassium, Serum 4.4 mmol/L 3.5-5.2 Chloride, Serum 103 mmol/L 97-106 Carbon Dioxide, Total 23 mmol/L 18-29 Calcium, Serum 9.3 mg/dL 8.6-10.2 Protein, Total, Serum 6.7 g/dL 6.0-8.5 Albumin, Serum 4.6 g/dL 3.5-4.8 Globulin, Total 2.1 g/dL 1.5-4.5 A/G Ratio 2.2 1.1-2.5 Bilirubin, Total 0.7 mg/dL 0.0-1.2 Alkaline Phosphatase, S 57 IU/L 39-117 AST (SGOT) 25 IU/L 0-40 ALT (SGPT) 20 IU/L 0-44 Prostate-Specific Ag, Serum - 06/05/16 0 0:00 Prostate Specific Ag, Serum 2.5 ng/mL 0. 0-4.0 Uric Acid, Serum - 06/05/16 00:00 Uric Acid, Serum 7.1 mg/dL 3.7-8.6 Complete blood count (CBC) with automate d white blood cell (WBC) differential - 10/06/18 12:31 Blood leukocytes automated count (number/volume) 10.5 10*3/uL 4.3-11.0 Blood erythrocytes automated count (number/volume) 4.24 10*6/uL 4.35-5.85 Venous blood hemoglobin measurement (mass/volume) 13.3 g/dL 13.3-17.7 Blood hematocrit (volume fraction) 40 % 40-54 Automated erythrocyte mean corpuscular volume 95 [ foz_us] 80-99 Automated erythrocyte mean corpuscular h emoglobin (mass per erythrocyte) 31 pg 25-34 Automated erythrocyte mean corpuscular h emoglobin concentration measurement (mass/volume) 33 g/dL 32-36 Automated erythrocyte distribution width ratio 13. 4 % 10.0- 14.5 Automated blood platelet count (count/volume) 260 10*3/uL 130-400 Automated blood platelet mean volume measurement 9.3 [foz_us] 7.4-10.4 Automated blood neutrophils/100 leukocytes 49 % 42-75 Automated blood lymphocytes/100 leukocytes 38 % 12-44 Blood monocytes/100 leukocytes 11 % 0-12 Automated blood eosinophils/100 leukocytes 1 % 0-10 Automated blood basophils/100 leukocytes 1 % 0-10 Blood neutrophils automated count (number/volume) 5.2 10*3 1.8-7.8 Blood lymphocytes automated count (number/volume) 3.9 10*3 1.0-4.0 Blood monocytes automated count (number/volume) 1. 2 10*3 0.0-1.0 Automated eosinophil count 0.1 10*3/uL 0 .0-0.3 Automated blood basophil count (count/volume) 0.1 10*3/uL 0.0-0.1 Comprehensive metabolic panel - 10/06/18 12:31 Serum or plasma sodium measurement (moles/volume) 141 mmol/L 135-145 Serum or plasma potassium measurement (moles/volume) 4.0 mmol/L 3.6-5.0 Serum or plasma chloride measurement (moles/volume) 100 mmol/L 98-107 Carbon dioxide 25 mmol/L 21-32 Serum or plasma anion gap determination (moles/volume) 16 mmol/L 5-14 Serum or plasma urea nitrogen measurement (mass/volume ) 22 mg/dL 7-18 Serum or plasma creatinine measurement (mass/volume) 1.01 mg/dL 0.60-1.30 Serum or plasma urea nitrogen/creatinine mass ratio 22 NRG Serum or plasma creatinine measurement w ith calculation of estimated glomerular filtration rate > NRG Serum or plasma glucose measurement (mass/volume) 101 mg/dL 70-105 Serum or plasma calcium measurement (mass/volume) 9.7 mg/dL 8.5-10.1 Serum or plasma total bilirubin measurement (mass/volu me) 0.6 mg/dL 0.1-1.0 Serum or plasma alkaline phosphatase kiel surement (enzymatic activity/volume) 43 U/L 40-136 Serum or plasma aspartate aminotransfera se measurement (enzymatic activity/volume) 35 U/L 5-34 Serum or plasma alanine aminotransferase measurement (enzymatic activity/volume) 32 U/L 0-55 Serum or plasma protein measurement (mass/volume) 7.1 g/dL 6.4-8.2 Serum or plasma albumin measurement (mass/volume) 4.6 g/dL 3.2-4.5 Serum or plasma lithium measurement (mol es/volume) - 10/06/18 12:31 BNP level 58.0 pg/mL <100.0 Ammonia - 10/06/18 12:31 Ammonia 56 umol/L 11-32 THYROID STIMULATING HORMONE - 10/06/18 1 2:31 THYROID STIMULATING HORMONE 2.13 u[iU]/mL 0.35-4.94 TROPONIN T - 10/06/18 13:30 TROPONIN T 11 % <=15 Complete urinalysis with reflex to cultu re - 10/06/18 13:57 Urine color determination YELLOW NRG Urine clarity determination CLEAR NR G Urine pH measurement by test strip 6.0 5-9 Specific gravity of urine by test strip < 1.016-1.022 Urine protein assay by test strip, semi-quantitative NEGATIVE NEGATIVE Urine glucose detection by automated test strip NE GATIVE NEGATIVE Erythrocytes detection in urine sediment by light micr oscopy NEGATIVE NEGATIVE Urine ketones detection by automated test strip NE GATIVE NEGATIVE Urine nitrite detection by test strip NEGATIVE NEGATIVE Urine total bilirubin detection by test strip NEGA TIVE NEGATIVE Urine urobilinogen measurement by automated test strip (mass/volume) 0.2 mg/dL NORMAL Urine leukocyte esterase detection by dipstick NEG ATIVE NEGATIVE Automated urine sediment erythrocyte cou nt by microscopy (number/high power field) NONE NRG Automated urine sediment leukocyte count by microscopy (number/high power field) NONE NRG Bacteria detection in urine sediment by light microsco py NONE NRG Squamous epithelial cells detection in u rine sediment by light microscopy RARE NRG Crystals detection in urine sediment by light microsco py NONE NRG Casts detection in urine sediment by light microscopy NONE NRG Mucus detection in urine sediment by light microscopy NEGATIVE NRG Complete urinalysis with reflex to culture NO NRG LIPID PANEL - 01/19/19 08:10 CHOLESTEROL, TOTAL 193 mg/dL <200 HDL CHOLESTEROL 61 mg/dL >40 TRIGLYCERIDES 139 mg/dL <150 LDL-CHOLESTEROL 107 mg/dL (calc) NRG CHOL/HDLC RATIO 3.2 (calc) <5.0 NON HDL CHOLESTEROL 132 mg/dL (calc) <13 0 CMP - 01/19/19 08:10 GLUCOSE 98 mg/dL 65-99 UREA NITROGEN (BUN) 16 mg/dL 7-25 CREATININE 1.10 mg/dL 0.70-1.18 eGFR NON-AFR. GAMBIAN 65 mL/min/1.73m2 > OR = 60 eGFR 75 mL/min/1.73m2 > OR = 60 BUN/CREATININE RATIO NOT APPLICABLE (calc) 6-22 SODIUM 141 mmol/L 135-146 POTASSIUM 4.0 mmol/L 3.5-5.3 CHLORIDE 106 mmol/L 98-110 CARBON DIOXIDE 27 mmol/L 20-32 CALCIUM 9.8 mg/dL 8.6-10.3 PROTEIN, TOTAL 6.5 g/dL 6.1-8.1 ALBUMIN 4.5 g/dL 3.6-5.1 GLOBULIN 2.0 g/dL (calc) 1.9-3.7 ALBUMIN/GLOBULIN RATIO 2.3 (calc) 1.0-2. 5 BILIRUBIN, TOTAL 1.0 mg/dL 0.2-1.2 ALKALINE PHOSPHATASE 50 U/L 40-115 AST 19 U/L 10-35 ALT 10 U/L 9-46 CBC - 01/19/19 08:10 WHITE BLOOD CELL COUNT 8.3 Thousand/uL 3 .8-10.8 RED BLOOD CELL COUNT 4.32 Million/uL 4.2 0-5.80 HEMOGLOBIN 13.6 g/dL 13.2-17.1 HEMATOCRIT 39.2 % 38.5-50.0 MCV 90.7 fL 80.0-100.0 MCH 31.5 pg 27.0-33.0 MCHC 34.7 g/dL 32.0-36.0 RDW 13.0 % 11.0-15.0 PLATELET COUNT 224 Thousand/uL 140-400 MPV 10.0 fL 7.5-12.5 ABSOLUTE NEUTROPHILS 4067 cells/uL 1500- 7800 ABSOLUTE LYMPHOCYTES 2913 cells/uL 850-3 900 ABSOLUTE MONOCYTES 1004 cells/uL 200-950 ABSOLUTE EOSINOPHILS 257 cells/uL 15-500 ABSOLUTE BASOPHILS 58 cells/uL 0-200 NEUTROPHILS 49 % NRG LYMPHOCYTES 35.1 % NRG MONOCYTES 12.1 % NRG EOSINOPHILS 3.1 % NRG BASOPHILS 0.7 % NRG LIPID PANEL - 05/15/19 08:49 CHOLESTEROL, TOTAL 185 mg/dL <200 HDL CHOLESTEROL 65 mg/dL >40 TRIGLYCERIDES 106 mg/dL <150 LDL-CHOLESTEROL 100 mg/dL (calc) NRG CHOL/HDLC RATIO 2.8 (calc) <5.0 NON HDL CHOLESTEROL 120 mg/dL (calc) <13 0 CMP - 05/15/19 08:49 GLUCOSE 96 mg/dL 65-99 UREA NITROGEN (BUN) 16 mg/dL 7-25 CREATININE 1.11 mg/dL 0.70-1.18 eGFR NON-AFR. GAMBIAN 64 mL/min/1.73m2 > OR = 60 eGFR 74 mL/min/1.73m2 > OR = 60 BUN/CREATININE RATIO NOT APPLICABLE (calc) 6-22 SODIUM 143 mmol/L 135-146 POTASSIUM 4.2 mmol/L 3.5-5.3 CHLORIDE 108 mmol/L 98-110 CARBON DIOXIDE 27 mmol/L 20-32 CALCIUM 9.9 mg/dL 8.6-10.3 PROTEIN, TOTAL 6.7 g/dL 6.1-8.1 ALBUMIN 4.5 g/dL 3.6-5.1 GLOBULIN 2.2 g/dL (calc) 1.9-3.7 ALBUMIN/GLOBULIN RATIO 2.0 (calc) 1.0-2. 5 BILIRUBIN, TOTAL 0.9 mg/dL 0.2-1.2 ALKALINE PHOSPHATASE 48 U/L 40-115 AST 20 U/L 10-35 ALT 13 U/L 9-46 CBC w/MANUAL DIFF - 05/15/19 08:49 WHITE BLOOD CELL COUNT 7.2 Thousand/uL 3 .8-10.8 RED BLOOD CELL COUNT 4.59 Million/uL 4.2 0-5.80 HEMOGLOBIN 14.0 g/dL 13.2-17.1 HEMATOCRIT 41.5 % 38.5-50.0 MCV 90.4 fL 80.0-100.0 MCH 30.5 pg 27.0-33.0 MCHC 33.7 g/dL 32.0-36.0 RDW 13.2 % 11.0-15.0 PLATELET COUNT 201 Thousand/uL 140-400 MPV 10.1 fL 7.5-12.5 ABSOLUTE NEUTROPHILS 3096 cells/uL 1500- 7800 ABSOLUTE LYMPHOCYTES 3528 cells/uL 850-3 900 ABSOLUTE MONOCYTES 504 cells/uL 200-950 ABSOLUTE EOSINOPHILS 72 cells/uL 15-500 ABSOLUTE BASOPHILS 0 cells/uL 0-200 NEUTROPHILS 43 % NRG LYMPHOCYTES 49 % NRG MONOCYTES 7 % NRG EOSINOPHILS 1 % NRG BASOPHILS 0 % NRG COMMENT(S) NRG PDM - 09 PANEL (PROFILE 1) - 09/17/19 06 :55 Prescribed Drug 1 Hydrocodone NRG Creatinine 140.1 mg/dL > or = 20.0 pH 5.3 4.5-9.0 Oxidant NEGATIVE mcg/mL <200 Amphetamines NEGATIVE ng/mL <500 medMATCH Amphetamines CONSISTENT NRG Benzodiazepines NEGATIVE ng/mL <100 medMATCH Benzodiazepines CONSISTENT NRG Marijuana Metabolite NEGATIVE ng/mL <20 medMATCH Marijuana Metab CONSISTENT NRG Cocaine Metabolite NEGATIVE ng/mL <150 medMATCH Cocaine Metab CONSISTENT NRG Opiates NEGATIVE ng/mL <100 medMATCH Opiates INCONSISTENT NRG Oxycodone NEGATIVE ng/mL <100 medMATCH Oxycodone CONSISTENT NRG COMMENT NRG Barbiturates NEGATIVE ng/mL <300 medMATCH Barbiturates CONSISTENT NRG Methadone Metabolite NEGATIVE ng/mL <100 medMATCH Methadone Metab CONSISTENT NRG Phencyclidine NEGATIVE ng/mL <25 medMATCH Phencyclidine CONSISTENT NRG Encounters ACCT No. Visit Date/Time Discharge Status Pt. Type Provider Facility Loc./Unit Complaint [id number] 06/06/2016 10:06:00 Document Registration [id number] 10/06/2018 12:15:00 019 14:52:00 DIS Emergency KALEB MOSELEY DO [facility] ER FS DIZZINESS; HEADACHE [id number] 09/17/2019 13:45:00 09/17/2019 23:59: 59 CLS Outpatient MINNIE LOPEZ [facility] [id number] 09/17/2019 07:00:00 Document Registration [id number] 05/15/2019 07:00:00 Document Registration [id number] 01/19/2019 08:00:00 Document Registration
--- NOTE | 2019-12-14 15:55 | NUR ---
Report from Nimco SALMON Dr in speaking with patient.
[2019-12-14 16:07] VITALS: BP 146/72
== END 2019-12-14 16:07 | disposition home or self-care (01) ==
LOC: EDUNIT# 13:03 → ER FS 13:05
DX: R07.9 Chest pain, unspecified (principal); I25.2 Old myocardial infarction; E78.00 Pure hypercholesterolemia, unspecified; I10 Essential (primary) hypertension; I25.10 Atherosclerotic heart disease of native coronary artery without angina pectoris; M19.91 Primary osteoarthritis, unspecified site; F32.9 Major depressive disorder, single episode, unspecified; Z79.899 Other long term (current) drug therapy; Z95.1 Presence of aortocoronary bypass graft
CPT/HCPCS: 36415; 71045; 80053; 84484; 85025; 85610; 93005

== ENCOUNTER → 2019-12-28 | Outpatient (CLI) | payer MEDICARE ==
[~2019-12-28] VITALS: Ht 183 cm; Wt 88.0 kg
[~2019-12-28] MED LIST changes: +REGADENOSON 0.4 MG/5 ML SYR (LEXISCAN) IV ONE
[2019-12-28] MEDS: CATHETER FLUSH 10 ML SYR IV PRN ×2 (08:35→09:46)
[2019-12-28 09:33] VITALS: BP 149/75
--- NOTE | 2019-12-28 14:09 | STRESS TEST ---
DATE OF SERVICE: 12/28/2019 LEXISCAN MYOVIEW STRESS TEST REPORT REFERRING PHYSICIAN: Dr. Orr. Baseline heart rate is 56. Baseline blood pressure 149/75. Baseline EKG is sinus rhythm with no ischemic changes. In summary, the patient was injected with 10.27 mCi of technetium-99 Myoview and the resting images were obtained. Then, the patient received 0.4 mg of Lexiscan followed by 30.8 mCi of technetium-99 Myoview. Throughout the test, there were no EKG changes. The resting and stress images were reviewed and compared in the short axis, horizontal long axis, and vertical long axis views. Review of the images showed diaphragmatic attenuation with typical male pattern. Mild decreased uptake involving the inferoapical segment with no significant ischemia or infarction. SSS is 4, SDS 2, TID value 0.98. On the gated images, the left ventricle appeared to be normal size with normal contractility. Calculated ejection fraction 50%. CONCLUSION: 1. The patient tolerated Lexiscan well. 2. Diaphragmatic attenuation with typical male pattern with no significant ischemia or infarction on SPECT images. 3. Normal left ventricular size with normal contractility. Calculated ejection fraction 50%. Job ID: [id number] DocumentID: [id number] Dictated Date: 12/28/2019 11:43:12 Brick Washer Date: 12/28/2019 14:08:30 Dictated By: CAITLIN BAIN MD
== END ==
LOC: CARD 08:19
PROVIDERS: ATTEND Internal Medicine Cardiovascular Disease
DX: E78.2 Mixed hyperlipidemia (principal); I10 Essential (primary) hypertension; I25.10 Atherosclerotic heart disease of native coronary artery without angina pectoris
CPT/HCPCS: 78452; 93017

== ENCOUNTER → 2019-12-29 | Outpatient (CLI) | payer MEDICARE ==
[~2019-12-29] MED LIST changes: -REGADENOSON 0.4 MG/5 ML SYR (LEXISCAN) IV ONE
== END ==
LOC: CARD 09:22
PROVIDERS: ATTEND Internal Medicine Cardiovascular Disease
DX: I10 Essential (primary) hypertension (principal); E78.2 Mixed hyperlipidemia; I25.10 Atherosclerotic heart disease of native coronary artery without angina pectoris
CPT/HCPCS: 93306

== ENCOUNTER 2020-05-19 09:51 | Emergency (ER) | payer MEDICARE ==
[~2020-05-19] VITALS: Ht 182 cm; Wt 78.0 kg
[2020-05-19] MEDS ORDERED: OLME40TA18 (10:17)
[2020-05-19] MEDS ORDERED: TRAM50TA3 (10:18)
[2020-05-19] MEDS ORDERED: SIMV40TA25 (10:18)
--- NOTE | 2020-05-19 10:50 | ED Upper Extremity ---
General Chief Complaint: Upper Extremity Stated Complaint: HAND SWLLING/PAIN Nursing Triage Note: ARRIVED VIA AMB TO ROOM 02 WITH COMPLAINTS OF RIGHT HAND PAIN AND SWELLING STARTING YESTERDAY AM. HAS A HX OF A INFECTION IN THIS HAND SEVERAL YEARS AGO THAT REQUIRED ADMISSION. Nursing Sepsis Screen: No Definite Risk Source: patient (TINY HERNANDEZ,MED STUDENT) History of Present Illness Date Seen by Provider: May 19, 2020 Time Seen by Provider: 10:29 Initial Comments 80yo male presents to the ED with one day history of right wrist pain that started after moving some furniture the two nights ago. He said that he felt a "twinge" in his wrist when moving the furniture and thought that he sprained his wrist. Yesterday the pain go worse and is currently described as sharp, throbbing and constant. Pain worsens with movement and improved slightly when he put a brace on. He has tried icing and heat but it has not helped. He had not tried any NSAIDs or Tylenol. He mentioned that 4 years ago he had an infxn of his right wrist and had to have it drained and was admitted. Onset: yesterday Pain/Injury Location: right wrist Method of Injury: sports injury (TINY HERNANDEZ,MED STUDENT) Allergies and Home Medications Allergies Coded Allergies: No Known Drug Allergies (Unverified , 10/06/18) Patient Home Medication List Home Medication List Reviewed: Yes (GRAYSON JONES MD) Review of Systems Constitutional: No chills, No fever, No malaise Respiratory: No cough, No dyspnea on exertion, No hemoptysis, No short of breath Cardiovascular: No chest pain, No edema; Hx of Intervention; No palpitations Gastrointestinal: No abdominal pain, No constipation, No diarrhea (Kary HERNANDEZ [facility],MED STUDENT) Constitutional: No chills, No fever Musculoskeletal: see HPI, joint pain, joint swelling Skin: change in color; No lesions Psychiatric/Neurological: Denies Numbness, Denies Paresthesia, Denies Weakness (GRAYSON JONES MD) Past Gmpaeja-Hznkym-Vkpedn Hx Past Med/Social Hx: Reviewed Nursing Past Med/Soc Hx (GRAYSON JONES MD) Patient Social History Alcohol Use: Denies Use Recreational Drug Use: No Smoking Status: Former Smoker Type Used: Cigarettes 2nd Hand Smoke Exposure: No Recent Foreign Travel: No Contact w/Someone Who Travel: No Recent Infectious Disease Expo: No Recent Hopitalizations: No (TINY HERNANDEZ MED STUDENT) Seasonal Allergies Seasonal Allergies: No (TINY HERNANDEZ MED STUDENT) Past Medical History Surgeries: Yes (Triple bypass) Appendectomy Respiratory: No Cardiac: Yes (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, coronary atherosclerosis, hypercholesterolemia) High Cholesterol, Hypertension Neurological: No Genitourinary: No Gastrointestinal: No 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 0oz. 95.060601kx; 23.00 BMI Method:Stated General Appearance: WD/WN, no apparent distress HEENT: PERRL/EOMI Neck: full range of motion Cardiovascular: regular rate, rhythm, no edema, no gallop, no JVD, no murmur Respiratory: chest non-tender, lungs clear, normal breath sounds, no respiratory distress, no accessory muscle use Elbow/Forearm: normal inspection, non-tender, no evidence of injury, normal ROM Wrist: No abrasions; Yes asymmetry, Yes bone tenderness; No deformity, No ecchymosis; Yes limited ROM; No mass, No nodules; Yes pain, Yes soft tissue tenderness, Yes swelling Hand: limited ROM, soft tissue tenderness, stiffness, swelling Neurologic/Tendon: normal sensation, normal motor functions, responds to pain, no evidence tendon injury; No motor deficit, No sensory deficit, No no response to pain, No tendon function deficit, No tendon injury visualized Neurologic/Psychiatric: alert, normal mood/affect (TINY HERNANDEZ MED STUDENT) General Appearance: WD/WN, no apparent distress Cardiovascular: regular rate, rhythm, no murmur Respiratory: lungs clear, normal breath sounds Wrist: Yes limited ROM (right), Yes pain (right), Yes soft tissue tenderness (right), Yes swelling (right) Neurologic/Psychiatric: alert, normal mood/affect Skin: warm/dry, other (mild erythema to the area of the right wrist dorsum) (GRAYSON JONES MD) Progress/Results/Core Measures Results/Orders Lab Results Laboratory Tests Test 05/19/20 11:00 Range/Units White Blood Count 9.2 4.3-11.0 10^3/uL Red Blood Count 3.59 L 4.30-5.52 10^6/uL Hemoglobin 11.2 L 13.3-17.7 g/dL Hematocrit 34 L 40-54 % Mean Corpuscular Volume 95 80-99 fL Mean Corpuscular Hemoglobin 31 25-34 pg Mean Corpuscular Hemoglobin Concent 33 32-36 g/dL Red Cell Distribution Width 13.2 10.0-14.5 % Platelet Count 196 130-400 10^3/uL Mean Platelet Volume 9.4 9.0-12.2 fL Immature Granulocyte % (Auto) 0 % Neutrophils (%) (Auto) 61 42-75 % Lymphocytes (%) (Auto) 27 12-44 % Monocytes (%) (Auto) 11 0-12 % Eosinophils (%) (Auto) 1 0-10 % Basophils (%) (Auto) 1 0-10 % Neutrophils # (Auto) 5.6 1.8-7.8 10^3/uL Lymphocytes # (Auto) 2.5 1.0-4.0 10^3/uL Monocytes # (Auto) 1.0 0.0-1.0 10^3/uL Eosinophils # (Auto) 0.1 0.0-0.3 10^3/uL Basophils # (Auto) 0.1 0.0-0.1 10^3/uL Immature Granulocyte # (Auto) 0.0 0.0-0.1 10^3/uL Erythrocyte Sedimentation Rate 32 H 0-30 MM/HR Sodium Level 143 135-145 MMOL/L Potassium Level 4.2 3.6-5.0 MMOL/L Chloride Level 108 H 98-107 MMOL/L Carbon Dioxide Level 24 21-32 MMOL/L Anion Gap 11 5-14 MMOL/L Blood Urea Nitrogen 18 7-18 MG/DL Creatinine 1.19 0.60-1.30 MG/DL Estimat Glomerular Filtration Rate 59 BUN/Creatinine Ratio 15 Glucose Level 98 70-105 MG/DL Calcium Level 9.0 8.5-10.1 MG/DL C-Reactive Protein High Sensitivity 2.57 H 0.00-0.50 MG/DL (GRAYSON JONES MD) My Orders Orders - GRAYSON JONES MD Wrist, Right, 2 Views (05/19/20 11:06) Ketorolac Injection (Toradol Injection) (05/19/20 11:18) (GRAYSON JONES MD) Vital Signs/I&O 05/19/20 10:00 Temp 36.9 Pulse 75 Resp 16 B/P (MAP) 134/67 (89) Pulse Ox 96 O2 Delivery Room Air (GRAYSON JONES MD) Blood Pressure Mean: 89 Progress Progress Note : Progress Note I have seen and evaluated this 80yo male who presents with right wrist pain that started yesterday. wrist sprain vs fracture of carpal bone or radial head fracture vs infection. Labs include CBC,BMP, CRP, ESR. Rads: right wrist x-ray. (TINY HERNANDEZ,MED STUDENT) Progress Note : Progress Note I have seen and evaluated the patient and agree with above except as indicated. I have directed the plan of care. Patient is here with right wrist pain after moving some furniture a couple days ago. Does have history of infection in that area. Denies fever. Does have some redness and swelling as well as pain. Has not taken anything for the pain but has used a splint which has helped. Denies fever or red streaks moving up the arm. Evaluation as above. We will check basic labs given his infection history as well as get x-ray. Dedicated scaphoid views done. 1148: No scaphoid fracture noted. She did receive Toradol 15 mg IV for pain. We recommended thumb spica splint and discharged home. Discharged home with return precautions. Patient verbalize understanding instructions and agreement with plan. (GRAYSON JONES MD) Diagnostic Imaging Diagonstic Imaging: Xray Plain Films/CT/US/NM/MRI: other Comments [facility]. [place], [place] NAME: KENDY ALVA REC#: [id number] PT STATUS: REG ER : 1940 PHYSICIAN: CAMILLE LOPEZ APRN ADMIT DATE: 05/19/20/ER Draft Date of Exam:05/19/20 WRIST, RIGHT, 2 VIEWS INDICATION: Radial sided wrist pain. FINDINGS: There is irregular appearance of the distal scaphoid pole. While there is severe degenerative changes across its articulation with the distal carpal row the possibility of the distal pole fracture in the setting of acute radial sided wrist pain could not be excluded. Dedicated scaphoid views with ulnar deviation recommended if there is any pain over the snuffbox. Otherwise osteoarthritic pattern is present with no erosive element or other potential acute finding. IMPRESSION: irregular appearance of the distal scaphoid pole, indeterminate superimposed degenerative change versus fracture. Dedicated scaphoid view with ulnar deviation recommended for its better visualization. Dictated on workstation # [id number] Dict: 05/19/20 1058 Trans: 05/19/20 1102 RITO [id number] Interpreted by: JAYLA LO Electronically signed by: Carlosnstic Imaging: Xray Plain Films/CT/US/NM/MRI: other Comments [facility] [place], [place] NAME: KENDY ALVA [facility] REC#: [id number] PT STATUS: REG ER : 1940 PHYSICIAN: GRAYSON JONES MD ADMIT DATE: 05/19/20/ER Draft Date of Exam:05/19/20 WRIST, RIGHT, 2 VIEWS INDICATION: Wrist pain. COMPARISON: Earlier same day at 10:48 AM TECHNIQUE: Oblique and ulnar deviated views of the wrist were obtained. IMPRESSION: Dedicated views of the scaphoid show no acute fracture. However, there are advanced degenerative changes at the STT articulation with marginal osteophytes in the distal pole of the scaphoid which account for the radiographic abnormality on prior exam. Dictated on workstation # [id number] Dict: 05/19/20 1133 Trans: 05/19/20 1136 RITO [id number] Interpreted by: GABINO HDZ MD Electronically signed by: (GRAYSON JONES MD) Departure Impression Primary Impression: Strain of right wrist Qualified Codes: S66.911A - Strain of unspecified muscle, fascia and tendon at wrist and hand level, right hand, initial encounter Additional Impression: Arthralgia of wrist, right Disposition: 01 HOME, SELF-CARE Condition: Stable Departure-Patient Inst. Decision time for Depature: 11:52 (GRAYSON JONSE MD) Referrals: MINNIE LOPEZ MD (PCP/Family) Primary Care Physician Patient Instructions: Wrist Sprain (DC), Joint Pain Add. Discharge Instructions: All discharge instructions reviewed with patient and/or family. Voiced understanding. Use wrist splint as needed for the next several days. Use ice packs to area concern 20 minutes per hour as needed over the next one to 2 days to reduce swelling and pain. You may take ibuprofen 400 mg every 8 hours as needed for pain. May take Tylenol/acetaminophen 1000 mg every 6-8 hours as needed for pain. Follow-up with your Dr. in a few days for recheck. Return for worse pain, s welling, weakness, breathing problems or other concerns as needed. TINY HERNANDEZ,MED STUDENT May 19, 2020 10:50 GRAYSON JONES MD May 19, 2020 11:46
--- NOTE | 2020-05-19 11:02 | Diagnostic Imaging Report ---
INDICATION: Radial sided wrist pain. FINDINGS: There is irregular appearance of the distal scaphoid pole. While there is severe degenerative changes across its articulation with the distal carpal row the possibility of the distal pole fracture in the setting of acute radial sided wrist pain could not be excluded. Dedicated scaphoid views with ulnar deviation recommended if there is any pain over the snuffbox. Otherwise osteoarthritic pattern is present with no erosive element or other potential acute finding. IMPRESSION: irregular appearance of the distal scaphoid pole, indeterminate superimposed degenerative change versus fracture. Dedicated scaphoid view with ulnar deviation recommended for its better visualization. Dictated by: Dictated on workstation # [id number]
--- NOTE | 2020-05-19 11:12 | NUR ---
SON UPDATED ON PT'S CONDITION.
[2020-05-19 11:17] LABS: BASOPHILS # (AUTO) 0.1 10^3/uL (0.0-0.1); BASOPHILS % (AUTO) 1 % (0-10); EOSINOPHILS # (AUTO) 0.1 10^3/uL (0.0-0.3); EOSINOPHILS % (AUTO) 1 % (0-10); HEMATOCRIT 34 % (40-54); HEMOGLOBIN 11.2 g/dL (13.3-17.7); LYMPHOCYTES # (AUTO) 2.5 10^3/uL (1.0-4.0); LYMPHOCYTES % (AUTO) 27 % (12-44); MEAN CORPUSCULAR HEMOGLOBIN 31 pg (25-34); MEAN CORPUSCULAR HGB CONC 33 g/dL (32-36); MEAN CORPUSCULAR VOLUME 95 fL (80-99); MEAN PLATELET VOLUME 9.4 fL (9.0-12.2); MONOCYTES % (AUTO) 11 % (0-12); NEUTROPHILS # (AUTO) 5.6 10^3/uL (1.8-7.8); NEUTROPHILS % (AUTO) 61 % (42-75); PLATELET COUNT 196 10^3/uL (130-400); WHITE BLOOD COUNT 9.2 10^3/uL (4.3-11.0)
[2020-05-19] MEDS ORDERED: KETOROLAC 30 MG/ML VIAL IVP STA (11:18)
[2020-05-19 11:24] LABS: POTASSIUM 4.2 MMOL/L (3.6-5.0)
[2020-05-19 11:30] LABS: CREATININE SERUM 1.19 MG/DL (0.60-1.30)
[2020-05-19 11:36] LABS: ERYTHROCYTE SEDIMENTATION RATE 32 MM/HR (0-30)
--- NOTE | 2020-05-19 11:36 | Diagnostic Imaging Report ---
INDICATION: Wrist pain. COMPARISON: Earlier same day at 10:48 AM TECHNIQUE: Oblique and ulnar deviated views of the wrist were obtained. IMPRESSION: Dedicated views of the scaphoid show no acute fracture. However, there are advanced degenerative changes at the STT articulation with marginal osteophytes in the distal pole of the scaphoid which account for the radiographic abnormality on prior exam. Dictated by: Dictated on workstation # [id number]
--- NOTE | 2020-05-19 12:21 | NUR ---
UPDATED FAMILY THAT HE WAS BEING DISCHARGED.
[2020-05-19 12:28] VITALS: BP 134/67
== END 2020-05-19 12:28 | disposition home or self-care (01) ==
LOC: EDUNIT# 09:51 → ER 09:55
DX: S66.911A Strain of unspecified muscle, fascia and tendon at wrist and hand level, right hand, initial encounter (principal); I10 Essential (primary) hypertension; Z87.891 Personal history of nicotine dependence; Z95.1 Presence of aortocoronary bypass graft; X50.0XXA Overexertion from strenuous movement or load, initial encounter
CPT/HCPCS: 36415; 73100; 80048; 85025; 85652; 86141